=== PATIENT | male | born 1955 | race Caucasian/White ===

== ENCOUNTER → 2022-01-18 11:01 | Outpatient (CLI) | payer SELFPAY ==
[2022-01-18 12:31] LABS: Add Manual Diff / Slide Review NO; Basophils Absolute Auto 0 /uL (0-100); Basophils Percent Auto 1.2 % (0-2); Eosinophils Absolute Auto 100 /uL (0-450); Hematocrit 42.2 % (41-53); Hemoglobin 14.5 g/dL (13.5-17.5); Lymphocytes Absolute Auto 1500 /uL (1100-4500); Lymphocytes Percent Auto 36.9 % (25-40); Mean Corpuscular HGB Conc 34.4 % (30-36); Mean Corpuscular Hemoglobin 31.5 PG (26-34); Mean Corpuscular Volume 91.5 fL (80-100); Monocytes Absolute Auto 500 /uL (0-900); Monocytes Percent Auto 11.5 % (3-14); Neutrophils Absolute Auto 1900 /uL (1500-7000); Neutrophils Percent Auto 48.4 % (50-75); Platelet Count 143 X10^3/uL (150-400); Red Blood Cell Count 4.61 X10^6/uL (4.5-5.9); Red Cell Distribution Width 13.7 % (11.6-14.8)
[2022-01-18 12:44] LABS: Carbon Dioxide 26 mmol/L (22-32); Chloride 107 mmol/L (98-107); HEMOLYSIS < 15 (0-50); Potassium 4.2 mmol/L (3.4-5.1); Sodium 139 mmol/L (137-145)
== END ==
PROVIDERS: Referring Provider Orthopaedic Surgery; Visit Provider Orthopaedic Surgery
DX: Z01.812 Encounter for preprocedural laboratory examination (principal)
CPT/HCPCS: 36415; 80051; 85025; 93005

== ENCOUNTER → 2022-03-11 09:01 | Outpatient (CLI) | payer OTHER, SELFPAY ==
[2022-03-11 09:39] LABS: Add Manual Diff / Slide Review NO; Basophils Absolute Auto 100 /uL (0-100); Basophils Percent Auto 1.6 % (0-2); Eosinophils Absolute Auto 100 /uL (0-450); Eosinophils Percent Auto 3.4 % (2-4); Hematocrit 40.9 % (41-53); Hemoglobin 14.3 g/dL (13.5-17.5); Lymphocytes Absolute Auto 1500 /uL (1100-4500); Lymphocytes Percent Auto 40.4 % (25-40); Mean Corpuscular Hemoglobin 31.4 PG (26-34); Mean Corpuscular Volume 89.6 fL (80-100); Monocytes Absolute Auto 400 /uL (0-900); Monocytes Percent Auto 11.5 % (3-14); Neutrophils Absolute Auto 1600 /uL (1500-7000); Neutrophils Percent Auto 43.1 % (50-75); Platelet Count 138 X10^3/uL (150-400); Red Blood Cell Count 4.56 X10^6/uL (4.5-5.9); Red Cell Distribution Width 13.6 % (11.6-14.8); White Blood Cell Count 3.7 X10^3/uL (4.5-11.0)
[2022-03-11 09:48] LABS: Hemoglobin A1C% w Est Avg Glu 5.4 % (4.0-6.0)
[2022-03-11 11:23] LABS: BUN Creatinine Ratio 17.1 (6-22); Blood Urea Nitrogen 14 mg/dL (9-20); Calcium 8.4 mg/dL (8.4-10.2); Carbon Dioxide 24 mmol/L (22-32); Chloride 108 mmol/L (98-107); Cholesterol 236 mg/dL (140-199); Estimated Glomerular Filt Rate > 60 mL/min (>60); Glucose 91 mg/dL (80-110); HDL Cholesterol 39 mg/dL (40-60); HEMOLYSIS < 15 (0-50); LDL Cholesterol Calculated 179 mg/dL (<100); Potassium 3.8 mmol/L (3.4-5.1); Sodium 138 mmol/L (137-145); Triglycerides 90 mg/dL (35-150)
== END ==
PROVIDERS: Referring Provider Neuromusculoskeletal Medicine & OMM; Visit Provider Neuromusculoskeletal Medicine & OMM
DX: Z00.00 Encounter for general adult medical examination without abnormal findings (principal)
CPT/HCPCS: 36415; 80048; 80061; 83036; 85025

== ENCOUNTER → 2022-04-04 16:10 | Outpatient (CLI) | payer OTHER, SELFPAY ==
[2022-04-04 18:11] LABS: Add Manual Diff / Slide Review NO; Basophils Absolute Auto 100 /uL (0-100); Basophils Percent Auto 1.1 % (0-2); Eosinophils Absolute Auto 100 /uL (0-450); Hematocrit 41.8 % (41-53); Hemoglobin 14.4 g/dL (13.5-17.5); Lymphocytes Absolute Auto 1800 /uL (1100-4500); Lymphocytes Percent Auto 31.1 % (25-40); Mean Corpuscular HGB Conc 34.4 % (30-36); Mean Corpuscular Hemoglobin 31.3 PG (26-34); Monocytes Absolute Auto 600 /uL (0-900); Monocytes Percent Auto 11.1 % (3-14); Neutrophils Absolute Auto 3200 /uL (1500-7000); Neutrophils Percent Auto 54.7 % (50-75); Platelet Count 144 X10^3/uL (150-400); Red Cell Distribution Width 13.6 % (11.6-14.8); White Blood Cell Count 5.8 X10^3/uL (4.5-11.0)
[2022-04-04 18:44] LABS: Hemoglobin A1C% w Est Avg Glu 5.4 % (4.0-6.0)
[2022-04-04 19:03] LABS: Blood Urea Nitrogen 23 mg/dL (9-20); Calcium 8.8 mg/dL (8.4-10.2); Carbon Dioxide 24 mmol/L (22-32); Chloride 109 mmol/L (98-107); Estimated Glomerular Filt Rate > 60 mL/min (>60); Glucose 97 mg/dL (80-110); HEMOLYSIS 15 (0-50); Potassium 3.8 mmol/L (3.4-5.1); Sodium 141 mmol/L (137-145)
== END ==
PROVIDERS: Family Provider Family Medicine; PCP Family Medicine; Referring Provider Orthopaedic Surgery; Visit Provider Orthopaedic Surgery
DX: Z01.812 Encounter for preprocedural laboratory examination (principal); R73.9 Hyperglycemia, unspecified
CPT/HCPCS: 36415; 80048; 83036; 85025

== ENCOUNTER → 2022-04-08 12:49 | Outpatient (CLI) | payer OTHER, SELFPAY ==
[2022-04-08 13:27] LABS: COVID19 -Nasal RAPID Negative (Negative)
== END ==
PROVIDERS: Family Provider Family Medicine; PCP Family Medicine; Referring Provider Orthopaedic Surgery; Visit Provider Orthopaedic Surgery
DX: Z20.822 Contact with and (suspected) exposure to COVID-19 (principal)
CPT/HCPCS: 87635; C9803

== ENCOUNTER 2022-04-09 09:12 | Day surgery (SDC) | payer OTHER, SELFPAY ==
[2022-04-08 14:40] VITALS: BMI 32.5
[2022-04-09] VITALS (16 sets, daily range): BP systolic 110–149; BP diastolic 67–96; PULSE 69–93; RESP 16–28; TEMP 36.1–37; O2SAT 83–97; BMI 32.5
--- NOTE | 2022-04-09 08:28 | DI.RAD.S_ITS ---
PROCEDURE: XR KNEE LT 1TO2V INDICATIONS: post op total knee TECHNIQUE: 2 view(s) of the knee acquired. COMPARISON: [facility], XR KNEE 4+ VIEWS LEFT, 10/23/2021, 13:39. FINDINGS: Bones: Patient is status post knee joint arthroplasty. Hardware components are in expected positions. Visualized bony structures are intact. Soft tissues: Overlying postoperative changes are noted. IMPRESSION: Expected postoperative change. Dictated by: Kayla Schwab M.D. on 04/09/2022 at 13:29 Approved by: Kayla Schwab M.D. on 04/09/2022 at 13:29
[2022-04-09] MEDS: ACETAMINOPHEN 325 MG TABLET 975 MG PO (09:54)
[2022-04-09] MEDS: PREGABALIN 75 MG CAPSULE PO (09:54)
[2022-04-09] MEDS: CELECOXIB 200 MG CAPSULE PO (09:54)
[2022-04-09] MEDS: LACTATED RINGERS 1,000 ML 42 ML IV ×2 (09:56→11:50)
--- NOTE | 2022-04-09 10:24 | PM.PREOP ---
Pre-operative Note COVID-19 COVID-19 status: Negative Result date/Date tested (Pos, Neg/Pending): 04/08/22 Interval Note History & Physical reviewed/Exam performed by Physician: Yes Changes to H&P: No
--- NOTE | 2022-04-09 11:01 | SUR.PREOP ---
Block start time [1050] . Monitoring initiated and maintained throughout procedure. Oxygen at 2LNP anesthesiologist instructions; IV sedation given by anesthesia. Patient remained stable throughout procedure, no adverse reactions noted. Block end time [1059].
[2022-04-09] MEDS: CEFAZOLIN 2 GM/20 ML SYRINGE IV (11:20)
[2022-04-09] MEDS: TRANEXAMIC ACID 1,000 MG VIAL 1000 MG INJ ×2 (11:20→12:44)
--- NOTE | 2022-04-09 11:43 | SUR.OPER ---
Supine on padded OR bed. Pillow under head, arms secured on padded armboards <90 degree abduction. Safety belt across torso. Non-operative leg secured with tape over blanket over lower leg. Operative leg secured in [place]. Foam padded brace at thigh of operative leg.
[2022-04-09] MEDS: MORPHINE 4 MG/ML INJ INJ (12:03)
[2022-04-09] MEDS: BUPIVACAINE LIPOSOME 266 MG/20 ML VIAL INJ (12:20)
[2022-04-09] MEDS: BUPIVACAINE 0.25% (PF) 60 ML, EPINEPHrine 0.3 MG INJ (12:20)
--- NOTE | 2022-04-09 12:57 | PM.OP.1 ---
Operative Date/Time/Diagnoses Date of procedure: 04/09/22 Time of procedure: 12:58 Pre-op diagnosis: Left knee osteoarthritis Post-op diagnosis: same Procedure & Clinicians Procedure: Left total knee replacement Same procedure as scheduled: Yes Indications: The patient has had progressively worsening left knee pain with radiographic changes consistent with arthritis. Non-operative management has failed and the patient has requested total knee replacement. The risks, benefits and alternatives to surgery were discussed with the patient prior to proceeding. Risks discussed included, but were not limited to, failure to relieve pain, stiffness, infection, nerve damage, deep venous thrombosis, pulmonary embolism, stroke, coma, heart attack, permanent paralysis and , as well as the potential need for eventual revision of the prosthetic. Surgeon: Reinier Pearson Share[employer] Net Developer: Mathew Temple Click Yes if Unassisted: No Anesthesia Type: General, Peripheral nerve block and Local Operative Notes Findings: Severe patellofemoral and moderate medial and lateral osteoarthritis Closure Type: primary Specimen(s): none sent Prosthetic devices, grafts, tissues, transplants, or devices: Implants used in this procedure were manufactured by the [employer] and [employer] and included the BCS II Journey total knee replacement with a size 5 left Oxinium femoral component, a size 5 left non porous tibial base plate, a 9 mm cross-linked polyethylene tibial insert and a 35 mm oval Lori II patella. Applied: implant(s) Estimated Blood Loss (mL): 25 Blood products transfused: none Tourniquet time (min): 49 Procedure in detail: The patient was seen in the pre-operative area, where the left knee was identified as the operative site and this was marked with my initials. The patient received pre-operative antibiotics, and was taken to the operating room and placed on the operative table in the supine position. After satisfactory anesthesia, a aircraft time clerk out was performed. The left leg was encircled with a tourniquet about the proximal thigh, and the leg was prepared from the toes to the tourniquet with ChloroPrep in the usual fashion and draped through sterile drapes. The leg was elevated and exsanguinated with Eschmark bandage and the tourniquet inflated to 250 mmHg pressure. The knee was approached through an approximately 18 cm incision centered over the patella and carried into the knee through a medial parapatellar arthrotomy. The anterior osteophytes and soft tissues were removed. The rotational landmarks of Motley's line and the transepicondylar axis were marked on the femur with electrocautery, and intramedullary guide holes for the femur and tibia were created. The distal femoral cut was made in 6 degrees of valgus using the intramedullary guide at the +1 cut setting due to a mild flexion contracture. The proximal tibial cut was then made using the intramedullary guide, taking 9 mm of bone off the less involved side. The extension gap was checked and the rotation of the femoral component confirmed with the gap balancing blocks. The anterior, posterior and chamfer cuts were then made. The posterior osteophytes and soft tissues were then removed. The posterior capsule was injected with part of a mixture of 40 ml 0.25% Marcaine mixed with 20 ml Exparel and 4 mg of morphine for post-operative pain control. The remainder of this mixture was injected into the capsule and subcutaneous tissues during cement curing. The tibia was prepared with the rotation set by an extra medullary guide. Trial tibial and femoral components were then placed and the intercondylar notch cut through the femoral trial. Range of motion was 0-135 degrees, with good stability throughout the range. The patella was then cut to accommodate the patellar prosthetic. There was no need for a lateral release. The trials were then removed, and the femoral hole plugged with a bone plug. The bone was prepared with pulsatile lavage, and dried with a sponge. Cement was applied and the final prosthetics placed. Excess cement was removed during and after cement curing. After confirming there was no extruded cement posteriorly, the final tibial insert was placed. The knee was copiously irrigated and the tourniquet deflated. Hemostasis was obtained. The capsule was closed with interrupted # 2 polyester sutures. The subcutaneous layer was closed with 3-0 Vicryl, and the skin with a running 3-0 V-Lock suture and Dermabond. An Aquacel Ag dressing was applied and the patient was taken to recovery having tolerated the procedure well. Complications: none Post-operative Condition: stable Disposition: PACU Plan for aftercare: The patient will be maintained on a standard total knee replacement protocol with weight bearing as tolerated. The patient will receive aspirin and sequential compression devices for DVT prophylaxis. The patient will be discharged home when safe for the home environment.
[2022-04-09] MEDS: fentaNYL 100 MCG/2 ML INJ IV ×2 (13:17→13:23)
[2022-04-09] MEDS: ONDANSETRON 4 MG/2 ML INJ IV (13:43)
[2022-04-09] MEDS: OXYCODONE IR 5 MG TABLET 10 MG PO (13:45)
--- NOTE | 2022-04-09 14:17 | SUR.PHASEI ---
1400: Pt A&Ox4, VSS, reports pain as tolerated, denies nausea and ready to transfer to room. Report given to BRAYAN Garcia using SBAR with time allowed for questions. Dressing c/d/i. Transferred to room via bed with this RN assit with all personal belongings. Handoff to receiving RN.
[2022-04-09] MEDS: LACTATED RINGERS 1,000 ML 100 ML IV ×2 (14:35→23:56)
[2022-04-09] MEDS: HYDROMORPHONE 0.5 MG INJ 0.2 MG IV (15:01)
[2022-04-09] MEDS: HYDROMORPHONE 2 MG TABLET PO ×2 (16:06→20:15)
[2022-04-09] MEDS: ACETAMINOPHEN 325 MG TABLET 650 MG PO ×2 (17:56→23:54)
[2022-04-09] MEDS: hydrOXYzine pamoate 25 MG CAPSULE PO ×2 (18:04→23:54)
[2022-04-09] MEDS: OXYCODONE IR 10 MG TABLET PO (18:05)
[2022-04-09] MEDS: DOCUSATE 100 MG CAPSULE PO (20:16)
[2022-04-09] MEDS: ASPIRIN EC 81 MG TABLET PO (20:16)
[2022-04-09] MEDS: LOSARTAN 50 MG TABLET 100 MG PO (20:28)
[2022-04-09] MEDS: TAMSULOSIN 0.4 MG CAPSULE PO (20:29)
--- NOTE | 2022-04-09 22:03 | PC.NURSE ---
Patient is alert and oriented. Breath sounds CTA with RA sat of 94%. HRR. Denies nausea. BT present and is passing flatus. Denies dysuria, frequency or urgency; using urinal to void. Is able to turn himself in bed. Has not yet been out of bed post-op and declines offer to get up at this time. Aquacel dressing to left knee covered with lavern wrap is CDI. CMS is intact except unable to lift leg off bed. Does have some chronic burning numbness in left hand radiating up arm. Chronic bilateral LE edema. Wearing right calf SCD at shift change and now applied SCD to bilateral legs. Did complain of 7/10 pain earlier and was medicated with po Dilaudid and ice packs applied and pain has come down to 5/10 and states it is tolerable. Fall risk score is high and bed alarm is activated.
[2022-04-09] MEDS: OXYCODONE IR 5 MG TABLET PO (23:13)
[2022-04-10 00:15] VITALS: BP 130/73; PULSE 78; RESP 17; TEMP 37.1; O2SAT 96
[2022-04-10] MEDS: OXYCODONE IR 10 MG TABLET PO ×3 (04:06→13:41)
[2022-04-10 04:12] VITALS: BP 126/71; PULSE 79; RESP 18; TEMP 36.8; O2SAT 94
[2022-04-10] MEDS: ACETAMINOPHEN 325 MG TABLET 650 MG PO ×2 (05:49→10:55)
[2022-04-10 06:38] LABS: Hemoglobin 12.4 g/dL (13.5-17.5)
[2022-04-10 07:45] VITALS: BP 123/68; PULSE 70; RESP 16; TEMP 37.2; O2SAT 95
--- NOTE | 2022-04-10 08:00 | PM.DS.1 ---
History of Present Illness History of Present Illness Date Patient Seen: 04/10/22 Time Patient Seen: 08:01 Chief complaint: Left knee pain s/p left TKA Narrative: Patient is complaining of moderate to severe left knee pain. He is also having left lower extremity swelling, which was happening prior to surgery as well. He denies any new numbness or tingling. Overall he is feeling well like to be discharged home today. Discharge Providers Provider Discharge Date: 04/10/22 Primary care physician: Shannon Dupree MD Consults: 04/09/22 14:05 Consult to Discharge Planning Routine Comment: Consult to Physical Therapy Evaluate & Treat Comment: Physician Instructions: postop TKA protocol Discharge provider: Shilpi Ariza PA-C Summary Hospital Course Discharge Diagnosis: Left knee osteoarthritis Hospital Course: Operative Date/Time/Diagnoses Date of procedure: 04/09/22 Time of procedure: 12:58 Procedure & Clinicians Procedure: Left total knee replacement Same procedure as scheduled: Yes Indications: The patient has had progressively worsening left knee pain with radiographic changes consistent with arthritis. Non-operative management has failed and the patient has requested total knee replacement. The risks, benefits and alternatives to surgery were discussed with the patient prior to proceeding. Risks discussed included, but were not limited to, failure to relieve pain, stiffness, infection, nerve damage, deep venous thrombosis, pulmonary embolism, stroke, coma, heart attack, permanent paralysis and , as well as the potential need for eventual revision of the prosthetic. Surgeon: Reinier Pearson Engineer Station Mainline: Mathew Temple Click Yes if Unassisted: No Anesthesia Type: General, Peripheral nerve block and Local Operative Notes Findings: Severe patellofemoral and moderate medial and lateral osteoarthritis Closure Type: primary Specimen(s): none sent Status at Discharge Cognitive/behavioral status at discharge: at baseline, oriented Functional status at discharge: uses cane/walker Overall status at discharge: patient is progressing back to baseline Exam Vital Signs (past 8 hours): - 04/10/22 00:15 04/10/22 04:12 Temperature 98.8 F 98.3 F Pulse Rate 78 79 Respiratory Rate 17 18 Blood Pressure 130/73 126/71 Pulse Oximetry 96 94 Oxygen Flow Rate 0 0 Oxygen Delivery Method Room Air Oxygen Flow Rate 0 Narrative Exam Narrative: Pleasant 66-year-old male, resting comfortably in bed, no acute distress. Dressing is clean, dry, intact. Left lower extremity has 1 to 2+ distal pitting edema. Bilateral lower extremity: Motor functions are grossly intact, sensation is grossly intact to light touch, calves are soft and nontender to palpation. Objective Labs Result Diagrams: 04/10/22 06:12 Labs: Laboratory Results - last 24 hr 04/10/22 06:12 Hgb 12.4 L Hct 36.0 L PFSH Medical History Osteoarthritis Platelets decreased Surgical History Hx of hernia repair Hx of lumbosacral spine surgery Hx of plastic surgery Social History household members: spouse Smoking Status: Former smoker alcohol intake: current Discharge Assessment & Plan Assessment and Plan Assessment: Stable status post left total knee arthroplasty -left lower extremity edema, present at baseline Plan of Treatment: -mobilize with PT. Weightbearing as tolerated with front wheel walker -continue with multimodal pain management. He has been on IV Dilaudid, oral Dilaudid, oxy 5-10 mg in addition to Tylenol and diclofenac and Vistaril. I will send him with a prescription of Dilaudid and Vistaril and Tylenol -aspirin 81 mg b.i.d. x6 weeks for DVT prophylaxis -DC home today once cleared by PT -patient instructed to elevate toes above his nose for his baseline lower extremity edema Discharge Plan Discharge Plan Patient Disposition: Home Discharge orders & Medications Discharge Orders: Discharge (Order); Ordered 04/10/22 Ordered By: Shilpi Ariza Prescriptions: New acetaminophen 500 mg capsule 500 mg PO Q4H MDD Max 3000 mg per day PRN (Reason: fever or pain) Qty: 90 0RF aspirin 81 mg Tablet,Delayed Release (Dr/Ec) 81 mg PO BID 42 Days Qty: 84 0RF Rx Instructions: Prevent blood clots docusate sodium 100 mg Capsule 100 mg PO BID PRN (Reason: Constipation from narcotic pain meds) Qty: 20 0RF hydromorphone 2 mg Tablet 2 mg PO Q3H PRN (Reason: Pain, Severe (7-10)) Qty: 42 0RF hydroxyzine pamoate 25 mg Capsule 25 mg PO Q6H PRN (Reason: Muscle spasm/pain/nausea) Qty: 40 0RF Continued tamsulosin 0.4 mg capsule 0.8 mg PO DAILY amlodipine 10 mg tablet 10 mg PO QAM losartan 100 mg tablet 100 mg PO QPM diclofenac sodium [Voltaren] 75 mg Tablet,Delayed Release (Dr/Ec) 75 mg PO BID Follow up/Referrals: Shannon Dupree MD [Primary Care Provider] - Reinier Pearson MD [Physician] - (10-14 days for postoperative visit) Diet/Activity/Treatments Diet: Diet as Tolerated Other treatments: Medications: -Aspirin 81mg twice daily x6 weeks to prevent blood clots. -OTC Tylenol 500 mg 1 tablet every 4 hours as needed for pain/fever. Max 6 tablets per day. -Diclofenac as needed for pain/inflammation. -Dilaudid 2 mg take 1 tablets every 3-4 hours as needed for moderate-severe pain (narcotic pain medication). -Vistaril (hydroxyine) 25mg 1 tab every 4 hours as needed for spasms/pain/nausea. -As needed medications: -Ducolax and /or MiraLax as needed for constipation from narcotic pain medications. -Pepcid AC as needed for stomach upset (usually from aspirin or ibuprofen). Dressing/Wound care: -Remove the Manjit wrap 48 hours after surgery. -Keep Aquacell dressing in place until postoperative follow-up office visit. -Okay to shower. Keep wound out of direct water stream. No soaking or submerging until all the scabs fall off (approximately 4-6 weeks). -No lotions, ointments, or scar creams directly to the incision until the wound is healed (4-6 weeks), -Please call the office if dressing becomes wet, soiled, or saturated. Activities: -Weight-bearing as tolerated. Use front wheeled walker, and progress to cane when safe. -Continue with home exercises as directed by your physical therapist. -Elevate ?toes above the nose if you have significant swelling in your lower leg. (A wedge pillow is easiest.) -Ice your incision as needed for pain/inflammation/swelling. Protect your skin with a folded pillowcase. -Incentive Spirometer (breathing device from hospital): 5-10xs every hour while awake for the first 1-2 weeks. Follow-up: -Follow-up with your surgeon or PA in the office in 10-14 days after surgery. -Follow-up with your surgeon 6 weeks postoperatively. Call the office if you have chest pain, shortness of breath, significant swelling that will not resolve with elevating, fever over 101?, significantly worsening pain, or are concerned you might need to go to the Emergency Room. [facility]: [phone] Skin/Wound/Dressing Care Report to your healthcare provider any signs of infection, such as:: chills, fever, night sweats, unusual drainage and unusual redness Visit Report/Discharge Packet Instructions: DI for Knee Replacement Stand Alone Forms: Surgery Discharge Discharge Data Primary Care Provider: Shannon Dupree Attending Provider: Reinier Pearson
[2022-04-10] MEDS: DOCUSATE 100 MG CAPSULE PO (08:06)
[2022-04-10] MEDS: hydrOXYzine pamoate 25 MG CAPSULE PO (08:06)
[2022-04-10] MEDS: AMLODIPINE 5 MG TABLET 10 MG PO (08:06)
[2022-04-10] MEDS: ASPIRIN EC 81 MG TABLET PO (08:07)
[2022-04-10] MEDS: HYDROMORPHONE 2 MG TABLET PO ×2 (08:07→10:54)
[2022-04-10] MEDS: polyethylene glycoL 3350 17 GM POWD.PACK PO (08:07)
--- NOTE | 2022-04-10 10:21 | PT.IIE ---
Current Diagnoses Unilateral primary osteoarthritis, left knee (04/09/22) Surgery Performed Operation Date: 04/09/22 11:00 Actual Procedures p Total Knee Arthroplasty(Left) - Reinier Pearson MD Surgical History (Last Reviewed 04/10/22 @ 08:03 by Shilpi Ariza PA-C) Hx of hernia repair Hx of lumbosacral spine surgery Hx of plastic surgery Medical History (Last Reviewed 04/10/22 @ 08:03 by Shilpi Ariza PA-C) Osteoarthritis Platelets decreased Physical Therapy Inpatient Evaluation/Re-Eval M1 PT/OT-IP Prior Functional Status Start: 04/10/22 14:23 Freq: NEEDED Status: Active Protocol: Document 04/10/22 10:21 AB (Rec: 04/10/22 14:35 AB [email or web address]) Medical Review Prior Functional Status Medical History Reviewed Yes Communication able to make needs known Mobility and Gait pt stated that he is independent with all mobilities and ambulation without AD Social History Household Members spouse Living Arrangements House Number of Floors (Floors) One Floor Number of Stairs To Enter/Railing? 1 step to enter Home Environment Standard Height Toilet,Walk in Shower,Built-In Shower Seat Home Equipment Front Wheel Walker,Straight Cane,Manual Wheelchair,Hand Held Shower Additional Social History Comment pt has an adjustable bed M2 PT-IP Current Condition Start: 04/10/22 14:23 Freq: NEEDED Status: Active Protocol: Document 04/10/22 10:21 AB (Rec: 04/10/22 14:35 AB [email or web address]) Physical Therapy Current Condition Current Condition Evaluation Date 04/10/22 Treatment Diagnosis s/p L TKA; difficulty in walking Onset Date 04/09/22 M3 PT-IP Subjective Start: 04/10/22 14:23 Freq: NEEDED Status: Active Protocol: Document 04/10/22 10:21 AB (Rec: 04/10/22 14:35 AB [email or web address]) Subjective Physical Therapy Visit Type Type Initial Evaluation Visit Start Time 10:21 Visit Stop Time 11:20 Total Visit Minutes 59 Number of COMPUTER PROGRAMMER CHIEF Visits 0 Physical Therapy Visit Comments Patient Comments agreeable to do PT Therapy Pain Assessment Pain When Pain Assessed At Rest Pain Present Pain Present Pain Reported Location left knee Intensity 9 Scale Used Numeric (0 - 10) Pain Management Techniques Apply Cold,Distraction, Modification of Treatment,Re- positioning,Timing of Activity with Medications M4 PT-IP Mobility and Gait Start: 04/10/22 14:23 Freq: NEEDED Status: Active Protocol: Document 04/10/22 10:21 AB (Rec: 04/10/22 14:35 AB [email or web address]) PT-Bed Mobility Assessment Supine to Sit Supine to Sit Moderate Assistance Sit to Supine Sit to Supine Moderate Assistance PT-Transfer Assessment Sit to and From Stand Sit to and from Stand Moderate Assistance,1 Person Assistance,Use of Upper Extremities Equipment Transfer Assistive Device Gait Belt,Front Wheeled Walker Orthotic/Prosthetic Devices or Brace: No Transfers Transfer Destination Chair Transfer Technique ambulated Transfer Ability Level of Assist Moderate Assistance,1 Person Assistance,Use of Upper Extremities Comments Mobility Comments pt sitting on chair. c/o increase L knee pain. completed heel slides. spouse in room with pt. completed sit to stand mod A and cues and step transfer to bed using FWW mod A. (+) L knee buckling. completed sit to supine mod A and instructed spouse on how to assist pt and completed. pt able to sit on EOB SBA. requires increase rest breaks in between tasks due to c/o increase pain. caregiver training conducted. educated spouse on how to use safety belt and how to assist pt. spouse was able to put safety belt on and assisted pt with ambulation ini room using FWW ~ 12 ft mod A and cues for L knee stabilization. pt sat on EOB. completed single leg stance max A with heavy UE use on FWW for support. educated pt on stair climbing. opted to do stair climbing in the afternoon due to pt not appropriate doing stair climbing at this time and also has c/o increase pain. pt requested to go back to bed. completed sit to supine modA. positioned pt in bed. call light and table placed within reach. Gait Assessment Gait Gait Assistance Required: Moderate Assistance Distance (Feet) 12 Able to Maintain Weight Bearing Status Yes During Gait Assistive Devices Assistive Device Gait Belt,Front Wheeled Walker Orthotic/Prosthetic Devices or Brace: No Gait Deviations General Gait Pattern Antalgic,Decreased Stride Length,Decreased Feet Clearance,Step-to Gait Factors Limiting Gait Function Factors Limiting Gait Function Decreased Activity Tolerance, Decreased Strength,Limited Range of Motion,Pain,Poor Balance,Poor Safety Awareness PT-Balance Assessment Sitting Balance and Reactions Static Sitting Balance Ability Good Dynamic Sitting Balance Ability Good Standing Balance and Reactions Static Standing Balance Ability Fair Dynamic Standing Balance Ability Poor Device Used FWW M5 PT-IP Objective Assessments Start: 04/10/22 14:23 Freq: NEEDED Status: Active Protocol: Document 04/10/22 10:21 AB (Rec: 04/10/22 14:35 AB [email or web address]) Orientation Orientation/Cognition Level of Alertness Alert Orientation Name,Place,Situation Language Function Ability No Deficits Noted Safety Awareness Decreased Safety Awareness Memory Description No Deficits Noted Gross Range of Motion Lower Extremity ROM Assessment Left Impaired Impairments L knee flexion: ~ 30 deg Strength Lower Extremity Strength Assessment Left Impaired Hip 3-/5 Knee 3-/5 Coordination Assessment Gross Coordination Gross Coordination WNL Sensation Assessment Sensation Gross Sensation WNL Muscle Tone Muscle Tone WNL Yes M6 PT-IP Treatment Start: 04/10/22 14:23 Freq: NEEDED Status: Active Protocol: Document 04/10/22 10:21 AB (Rec: 04/10/22 14:35 AB [email or web address]) Physical Therapy Treatment Exercises Exercises Quad Sets,Heel Slides Education Education Provided Precautions,Weight Bearing Status,Post-Op Packet,Safety M7 PT-IP Assessment and Plan Start: 04/10/22 14:23 Freq: NEEDED Status: Active Protocol: Document 04/10/22 10:21 AB (Rec: 04/10/22 14:35 AB [email or web address]) PT Summary Assessment and Plan Potential Rehabilitation Potential Good Status of Condition at Evaluation Evolving Summary Impairments Pain,ROM,Strength,Balance, Coordination,Sensation,Tone, Cognition,Bed Mobility, Transfers,Gait,Activity Tolerance Assessment Summary pt requiring mod A with mobility and with decrease activity tolerance affecting mobility. conducted caregiver training but further training is needed. pt has a step to enter the house and at this time is not appropriate to safety do stairs. pt also has c/o increase knee pain. will continue to assess progress for safe d/c plan. Goals Bed Mobility Goal Standby Assistance Transfer Goal Standby Assistance,Front Wheeled Walker Gait Goal Standby Assistance,Front Wheel Walker Gait Distance 200 Other Goals up/down 1 step using FWW SBA Days to Meet Goals 10 Frequency of Treatment Frequency Of Treatment Twice a Day Treatment Plan Physical Therapy Treatment Plan Bed Mobility Training,Transfer Training,Gait Training, Therapeutic Exercise,Balance Retraining,Post Op Education, Discharge Planning,Hot or Cold Pack,Neuromuscular Re-ed, Coordination Retraining,Manual Therapy Weight Bearing Status Weight Bearing Status Weight Bear as Tolerated Allowed Weight Bearing Amount (enter % LLE WBAT or #) (%) Recommendations To Nursing Amount of Assist Needed 1 Person Assist Discharge Recommendations PT Discharge Recommendations Home with 18/05 Assist Available,Home Health,SNF Rehab,Home vs SNF Transportation Needs at Discharge Private Vehicle
[2022-04-10 13:00] VITALS: BP 137/70; PULSE 72; RESP 16; TEMP 37.3; O2SAT 96
--- NOTE | 2022-04-10 13:30 | PT.IPTN ---
Current Diagnoses Unilateral primary osteoarthritis, left knee (04/09/22) Surgery Performed Operation Date: 04/09/22 11:00 Actual Procedures p Total Knee Arthroplasty(Left) - Reinier Pearson MD Physical Therapy Treatment Note M2 PT-IP Current Condition Start: 04/10/22 14:23 Freq: NEEDED Status: Active Protocol: Document 04/10/22 10:21 AB (Rec: 04/10/22 14:35 AB [email or web address]) Physical Therapy Current Condition Current Condition Evaluation Date 04/10/22 Treatment Diagnosis s/p L TKA; difficulty in walking Onset Date 04/09/22 M3 PT-IP Subjective Start: 04/10/22 14:23 Freq: NEEDED Status: Active Protocol: Document 04/10/22 13:30 AB (Rec: 04/10/22 14:42 AB [email or web address]) Subjective Physical Therapy Visit Type Type Treatment Note Visit Start Time 13:30 Visit Stop Time 14:07 Total Visit Minutes 37 Number of READING COACH Visits 0 Physical Therapy Visit Comments Patient Comments stated that pain is better Therapy Pain Assessment Pain When Pain Assessed At Rest Pain Present Pain Present Pain Reported Location left knee Intensity 4 Scale Used Numeric (0 - 10) Pain Management Techniques Apply Cold,Distraction, Modification of Treatment,Re- positioning,Timing of Activity with Medications M4 PT-IP Mobility and Gait Start: 04/10/22 14:23 Freq: NEEDED Status: Active Protocol: Document 04/10/22 13:30 AB (Rec: 04/10/22 14:42 AB [email or web address]) PT-Bed Mobility Assessment Supine to Sit Supine to Sit Minimal Assistance,1 Person Assistance Sit to Supine Sit to Supine Minimal Assistance PT-Transfer Assessment Sit to and From Stand Sit to and from Stand Contact Guard Assistance,1 Person Assistance,Use of Upper Extremities Equipment Transfer Assistive Device Gait Belt,Front Wheeled Walker Orthotic/Prosthetic Devices or Brace: No Transfers Transfer Destination Chair Transfer Technique ambulated Transfer Ability Level of Assist Contact Guard Assistance,1 Person Assistance,Use of Upper Extremities Comments Mobility Comments caregiver training conducted. pt completed supine to sit with spouse assisting. spouse was able to put safety belt on pt. pt ambulated using FWW to the chair CGA. completed single leg stance on LLE and able to maintain stability. educated pt and spouse on how to do stair climbing. spouse assisted pt with ambulation towards platform step using FWW CGA. completed up/down platform step with first attempt with PT assisting and cueinig. performed again with spouse assisting and completed CGA safely. pt ambulated more in the hallway ~ 50 ft using FWW CGA. ambulated back to the room. pt requested to go back to bed. completed sit to supine with spouse assisting mod A for LE elevation. positioned pt in bed. call light and table placed within reach. informed nurse regarding pt d/ c plan. Gait Assessment Gait Gait Assistance Required: Contact Guard Assist Distance (Feet) 50 Able to Maintain Weight Bearing Status Yes During Gait Assistive Devices Assistive Device Gait Belt,Front Wheeled Walker Orthotic/Prosthetic Devices or Brace: No Gait Deviations General Gait Pattern Antalgic,Decreased Stride Length,Decreased Feet Clearance,Step-to Gait Factors Limiting Gait Function Factors Limiting Gait Function Decreased Activity Tolerance, Decreased Strength,Limited Range of Motion,Pain,Poor Balance,Poor Safety Awareness Stair Climbing Assessment Evaluation Level of Assist On Stairs Contact Guard Assistance Devices Stair Climbing Assistive Devices Front Wheel Walker Technique/Endurance Stair Climbing Direction Ascend and Descend Stair Climbing Technique Step to Step Number of Steps Climbed 1 Stair Climbing Set # Repetitions (reps) 2 M5 PT-IP Objective Assessments Start: 04/10/22 14:23 Freq: NEEDED Status: Active Protocol: Document 04/10/22 10:21 AB (Rec: 04/10/22 14:35 [email or web address] Orientation Orientation/Cognition Level of Alertness Alert Orientation Name,Place,Situation Language Function Ability No Deficits Noted Safety Awareness Decreased Safety Awareness Memory Description No Deficits Noted Gross Range of Motion Lower Extremity ROM Assessment Left Impaired Impairments L knee flexion: ~ 30 deg Strength Lower Extremity Strength Assessment Left Impaired Hip 3-/5 Knee 3-/5 Coordination Assessment Gross Coordination Gross Coordination WNL Sensation Assessment Sensation Gross Sensation WNL Muscle Tone Muscle Tone WNL Yes M6 PT-IP Treatment Start: 04/10/22 14:23 Freq: NEEDED Status: Active Protocol: Document 04/10/22 13:30 AB (Rec: 04/10/22 14:42 AB [email or web address]) Physical Therapy Treatment Education Education Provided Safety M7 PT-IP Assessment and Plan Start: 04/10/22 14:23 Freq: NEEDED Status: Active Protocol: Document 04/10/22 13:30 AB (Rec: 04/10/22 14:42 AB [email or web address]) PT Summary Assessment and Plan Potential Rehabilitation Potential Good Summary Impairments Pain,ROM,Strength,Balance, Coordination,Sensation,Tone, Cognition,Bed Mobility, Transfers,Gait,Activity Tolerance Progress Towards Goals Slow Progress due to Pain Assessment Summary caregiver training conducted and spouse was able to assist pt safely. pt also has less pain this afternoon and was able to ambulate and transfer needing on CGA using FWW. pt may go home when medically stable. Goals Bed Mobility Goal Standby Assistance Transfer Goal Standby Assistance,Front Wheeled Walker Gait Goal Standby Assistance,Front Wheel Walker Gait Distance 200 Other Goals up/down 1 step using FWW SBA Days to Meet Goals 10 Frequency of Treatment Frequency Of Treatment Twice a Day Treatment Plan Physical Therapy Treatment Plan Bed Mobility Training,Transfer Training,Gait Training, Therapeutic Exercise,Balance Retraining,Post Op Education, Discharge Planning,Hot or Cold Pack,Neuromuscular Re-ed, Coordination Retraining,Manual Therapy Weight Bearing Status Weight Bearing Status Weight Bear as Tolerated Allowed Weight Bearing Amount (enter % LLE WBAT or #) (%) Recommendations To Nursing Amount of Assist Needed 1 Person Assist Discharge Recommendations PT Discharge Recommendations Home with Assistance, Outpatient PT Transportation Needs at Discharge Private Vehicle
--- NOTE | 2022-04-10 14:17 | CM.IDA ---
Initial DCP Assessment Note Pt is a 66 yo male, resident of [place], now POD#1 from left knee surgery by Dr Pearson PCP: Shannon Dupree Payer: [place] [employer] Reviewed chart, pt discussed in multidisciplinary rounds this morning. Therapy has cleared pt for return home w/family to assist and pt has planned for home, DC order from Ortho has already been initiated this morning. No needs expected from DC planning team although will remain available in case this changes today. MEAGAN Olivas
== END 2022-04-10 15:00 | disposition home or self-care (01) ==
LOC: OR 09:14 → AC 09:14
PROVIDERS: Family Provider Family Medicine; PCP Family Medicine; Referring Provider Orthopaedic Surgery; Visit Provider Orthopaedic Surgery
PROC: 0SRD0JZ Replacement of Left Knee Joint with Synthetic Substitute, Open Approach (ICD-10-PCS; CPT 27447; principal; 2022-04-09 11:00)
DX: M17.12 Unilateral primary osteoarthritis, left knee (principal); I10 Essential (primary) hypertension
CPT/HCPCS: 27447; 36415; 64450; 73560; 85014; 85018; 97162; 97530; C1776; C1713; C9290; J0171; J0690; J1100; J1170; J2250; J2270; J2405; J2704; J3010

== ENCOUNTER → 2022-04-24 14:11 | Outpatient (CLI) | payer OTHER, SELFPAY ==
[2022-04-09 15:01] VITALS: BMI 32.5
--- NOTE | 2022-04-24 | DI.US.S_ITS ---
PROCEDURE: US PERIPH VENOUS LOW EXTREM LT INDICATIONS: LEFT LEG PAIN TECHNIQUE: Real-time imaging, as well as color and pulse Doppler interrogation, were performed of the lower extremity deep veins from the inguinal ligament to the popliteal fossa. COMPARISON: None. FINDINGS: The common femoral, femoral and popliteal veins are normally compressible, and free of intraluminal thrombus. Color and pulse Doppler demonstrate normal phasic intraluminal flow. There is normal augmentation response to distal compression maneuver. IMPRESSION: No sonographic evidence of DVT. Dictated by: Yohan Garcia M.D. on 04/24/2022 at 14:38 Approved by: Yohan Garcia M.D. on 04/24/2022 at 14:39
== END ==
PROVIDERS: Family Provider Family Medicine; PCP Family Medicine; Referring Provider Physician Assistant Medical; Visit Provider Physician Assistant Medical
DX: M17.0 Bilateral primary osteoarthritis of knee (principal); M79.605 Pain in left leg
CPT/HCPCS: 93971

== ENCOUNTER 2022-05-29 09:45 | Outpatient (RCR) | payer OTHER, SELFPAY ==
--- NOTE | 2022-04-08 13:38 | PT.OIE ---
Current Diagnoses Unilateral primary osteoarthritis, left knee (04/08/22) Past Medical History (Last Reviewed 04/09/22 @ 09:33 by Althea Domínguez, RN) Osteoarthritis Platelets decreased Past Surgical History (Last Reviewed 04/09/22 @ 09:33 by Althea Domínguez, RN) Hx of hernia repair Hx of lumbosacral spine surgery Hx of plastic surgery Visit Care Team Role Provider Type Shannon Dupree MD Family Provider Non-Staff Primary Care Provider Specialty: Family Practice Address: [address] [place] [address], [id number] Email: Reinier Pearson MD Attending Provider Physician Referring Provider Specialty: Orthopedics Orthopedic Surgery Address: [address] [place] [address], [place], [address] Email: [email or web address] Physical Therapy Initial Evaluation PT-OP-A Visit Information Start: 04/07/22 09:54 Freq: Status: Active Protocol: Document 04/08/22 10:30 AMB (Rec: 04/09/22 12:46 AMB [id number]) Out-Patient Physical Therapy Visit Information Visit Information Visit Type Initial Evaluation Visit Start Time 10:30 Visit Stop Time 11:15 Total Visit Minutes 45 Visit Number 1 PT-OP-B Current Condition Start: 04/07/22 09:54 Freq: Status: Active Protocol: Document 04/08/22 10:30 AMB (Rec: 04/09/22 12:46 AMB [id number]) Current Condition History of Current Condition Onset Date 2013 Current Complaints L TKA 04/09/22 History of Current Condition Meet has had knee pain for a long time, started getting steroid injections 8 years ago . Got the to point where he really couldn't take it and is having surgery tomorrow. Plans to do a day surgery. Attends PT with his who is a retired RN. Reports he has a walker in the attic that was his MIL, not sure if it will be tall enough for him. Has 2 JEANCARLOS without rail (can sort of lean against the wall) . Planning to sleep on sofa/ recliner, tub shower. 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 Prior Functional Status Baseline Function- ADL's Modified Independent Baseline Function- Mobility Modified Independent Personal Factors Other Personal Factors That May Effect hypertension, R knee pain Therapy/Recovery PT-OP-C Subjective Start: 04/07/22 09:54 Freq: Status: Active Protocol: Document 04/08/22 10:30 AMB (Rec: 04/09/22 13:02 AMB [id number]) Patient Questionnaires Lower Extremity Functional Scale LEFS Score 24 LEFS Impairment 60 to 79% Impaired (Score 17- 31) OP-PT Pain Assessment Comments Pain Comments L knee and lower leg 06/04; R knee and lower leg 03/04 PT-OP-G Mobility & Gait Start: 04/07/22 09:54 Freq: Status: Active Protocol: Document 04/08/22 10:30 AMB (Rec: 04/09/22 13:02 AMB [id number]) OP Gait Assessment Comments Gait Comments Antalgic gait without full knee extension or flexion, no AD Stair Climbing Evaluation Comments Stair Climbing Comments Educated in step to gait patterning which pt was able to perform appropriately PT-OP-J Posture/Palpation/Skin Start: 04/07/22 09:54 Freq: Status: Active Protocol: Document 04/08/22 10:30 AMB (Rec: 04/09/22 13:02 AMB [id number]) Skin Assessment Edema Assessment Left Leg Edema Type Pitting Edema Degree 2+ Subjective Edema Description Tightness Comments throughout knee, lower leg, ankle PT-OP-K Range of Motion Start: 04/07/22 09:54 Freq: Status: Active Protocol: Document 04/08/22 10:30 AMB (Rec: 04/09/22 13:02 AMB [id number]) Knee Goniometric Range of Motion Knee Left Patient Position Supine Flexion Passive (degrees) 94 Comments missing 10 degrees of extension PT-OP-M Strength Start: 04/07/22 09:54 Freq: Status: Active Protocol: Document 04/08/22 10:30 AMB (Rec: 04/09/22 13:02 AMB [id number]) Knee Strength Knee Manual Muscle Testing Left Flexion (S2) 4+ Good+ Extension (L3) 5 Normal PT-OP-Q Treatments Start: 04/07/22 09:54 Freq: Status: Active Protocol: Document 04/08/22 10:30 AMB (Rec: 04/09/22 13:38 AMB [id number]) Therapeutic Exercises Supine Exercises heel slide Side left Reps/Minutes 10 passive knee ext Side left Reps/Minutes 30 SLR Side left Reps/Minutes 5 quad sets Side left Reps/Minutes 5 ankle pumps Side left Reps/Minutes 10 PT-OP-T Assessment and Plan Start: 04/07/22 09:54 Freq: Status: Active Protocol: Document 04/08/22 10:30 AMB (Rec: 04/09/22 13:38 AMB [id number]) Physical Therapy Assessment Rehab Potential Rehabilitation Potential Good Evaluation Complexity Number of Personal Factors/Comorbidities 1-2 Number of Body Systems Impaired 3 Clinical Presentation at Evaluation Stable Impairments Impairments Activity Tolerance,Edema, Functional Activities,Gait, Pain,ROM,Strength Goals Three Impairment Strength Short Term Goal (STG) Meet will be independent and consistent with a HEP for his knee. STG Duration 5 weeks Jail Goal (LTG) Meet will show improved knee strength by moving from sit to stand without UE support. LTG Duration 10 weeks Two Impairment Gait Short Term Goal (STG) Meet will ambulate for 6 minutes over smooth surface without assistive device. STG Duration 5 weeks Loan Servicing Officer Goal (LTG) Meet will ascend and descend a flight of stairs with an alternating gait pattern. LTG Duration 10 weeks One Impairment Range Short Term Goal (STG) Meet will improve his PROM to 5-100. STG Duration 5 weeks Jail Goal (LTG) Meet will improve his AROM to 0-120. LTG Duration 10 weeks Assessment Summary Assessment Meet attends physical therapy 1 day prior to L TKA surgery. He has significantly reduced ROM in his left knee into both extension and flexion. He has pitting edema in his lower legs bilaterally, worse on the left. Extensive education on FWW usage, stairs , and appropriate HEP, importance of movement, ice, elevation early on. He was able to appropriately ambulate with the FWW, ascend and descend stairs with a step to gait, and educated in sit to stand and bed mobility with using the right leg predominantly for the first few days after surgery. He is planning to go home the same day with his , and will return to this clinic in a week for a re-evaluation post surgery. Physical Therapy Plan Frequency and Duration Frequency of Treatment 2x/Week Duration of Treatment 10 weeks Plan of Care Start Date 04/08/22 Plan of Care End Date 06/17/22 Therapeutic Interventions Therapeutic Interventions Aquatic Therapy,Gait Training, Home Exercise Program,Joint Mobilizations,Manual Therapy, Neuromuscular Re-education, Patient/Caregiver Education, Self-Care/Home Management, Therapeutic Activities, Therapeutic Exercises Modalities Cold Pack/Ice Massage,Electric Stimulation,Hot Packs Next Visit Focus/Plan Next Note Type Re-Evaluation Next Visit Plan Re-evaluate post TKA surgery
--- NOTE | 2022-04-08 13:39 | PT.OPPOC ---
Physical, Occupational & Speech Therapy At [facility] Current Diagnoses Unilateral primary osteoarthritis, left knee (04/08/22) Visit Care Team Role Provider Type Shannon Dupree MD Family Provider Non-Staff Primary Care Provider Specialty: Family Practice Address: [address] [place], [address] Email: Reinier Pearson MD Attending Provider Physician Referring Provider Specialty: Orthopedics Orthopedic Surgery Address: [address] [place] [address], [id number] Email: [email or web address] Plan Of Care PT-OP-T Assessment and Plan Start: 04/07/22 09:54 Freq: Status: Active Protocol: Document 04/08/22 10:30 AMB (Rec: 04/09/22 13:38 AMB [id number]) Physical Therapy Assessment Rehab Potential Rehabilitation Potential Good Evaluation Complexity Number of Personal Factors/Comorbidities 1-2 Number of Body Systems Impaired 3 Clinical Presentation at Evaluation Stable Impairments Impairments Activity Tolerance,Edema, Functional Activities,Gait, Pain,ROM,Strength Goals Three Impairment Strength Short Term Goal (STG) Meet will be independent and consistent with a HEP for his knee. STG Duration 5 weeks Debt Management Counselor Goal (LTG) Meet will show improved knee strength by moving from sit to stand without UE support. LTG Duration 10 weeks Two Impairment Gait Short Term Goal (STG) Meet will ambulate for 6 minutes over smooth surface without assistive device. STG Duration 5 weeks Snf Goal (LTG) Meet will ascend and descend a flight of stairs with an alternating gait pattern. LTG Duration 10 weeks One Impairment Range Short Term Goal (STG) Meet will improve his PROM to 5-100. STG Duration 5 weeks Debt Management Counselor Goal (LTG) Meet will improve his AROM to 0-120. LTG Duration 10 weeks Assessment Summary Assessment Meet attends physical therapy 1 day prior to L TKA surgery. He has significantly reduced ROM in his left knee into both extension and flexion. He has pitting edema in his lower legs bilaterally, worse on the left. Extensive education on FWW usage, stairs , and appropriate HEP, importance of movement, ice, elevation early on. He was able to appropriately ambulate with the FWW, ascend and descend stairs with a step to gait, and educated in sit to stand and bed mobility with using the right leg predominantly for the first few days after surgery. He is planning to go home the same day with his , and will return to this clinic in a week for a re-evaluation post surgery. Physical Therapy Plan Frequency and Duration Frequency of Treatment 2x/Week Duration of Treatment 10 weeks Plan of Care Start Date 04/08/22 Plan of Care End Date 06/17/22 Therapeutic Interventions Therapeutic Interventions Aquatic Therapy,Gait Training, Home Exercise Program,Joint Mobilizations,Manual Therapy, Neuromuscular Re-education, Patient/Caregiver Education, Self-Care/Home Management, Therapeutic Activities, Therapeutic Exercises Modalities Cold Pack/Ice Massage,Electric Stimulation,Hot Packs Next Visit Focus/Plan Next Note Type Re-Evaluation Next Visit Plan Re-evaluate post TKA surgery Plan of Care Dates Plan of Care Start Date 04/08/22 Plan of Care End Date 06/17/22 Electronically Signed by: Shweta Alexander, PT 04/09/22 1635 If you are in agreement with this Plan of Care, please return a signed and dated copy. I have reviewed this Plan of Care and certify that the skilled therapy services above are required to meet the patient?s needs. Physician Signature Date Printed Name and Credentials Clinical Instructor Signature Printed Name and Credentials
[2022-04-09 15:01] VITALS: BMI 32.5
--- NOTE | 2022-04-14 16:46 | PT.OTRE ---
Current Diagnoses Unilateral primary osteoarthritis, left knee (04/14/22) Past Medical History (Last Reviewed 04/10/22 @ 08:03 by Shilpi Ariza PA-C) Osteoarthritis Platelets decreased Surgical History (Last Reviewed 04/10/22 @ 08:03 by Shilpi Ariza PA-C) Hx of hernia repair Hx of lumbosacral spine surgery Hx of plastic surgery Visit Care Team Role Provider Type Shannon Dupree MD Family Provider Non-Staff Primary Care Provider Specialty: Family Practice Address: [address] [place] [address], [id number] Email: Reinier Pearson MD Attending Provider Physician Referring Provider Specialty: Orthopedics Orthopedic Surgery Address: [address] [place] [address], [id number] Email: [email or web address] Physical Therapy Re-Evaluation PT-OP-A Visit Information Start: 04/07/22 09:54 Freq: Status: Active Protocol: Document 04/14/22 14:31 SAK (Rec: 04/14/22 15:15 [facility] [id number]) Out-Patient Physical Therapy Visit Information Visit Information Visit Type Re-Evaluation Visit Start Time 14:30 Visit Stop Time 15:25 Total Visit Minutes 55 Visit Number 2 PT-OP-B Current Condition Start: 04/07/22 09:54 Freq: Status: Active Protocol: Document 04/14/22 14:31 SAK (Rec: 04/14/22 15:15 [facility] [id number]) Current Condition History of Current Condition Onset Date 04/09/22 Current Complaints L TKA 04/09/22 History of Current Condition s/p left TKA 04/09/22, discharged home. Reports has been doing exercises a couple times per day, though painful and has a difficult time lifting his leg. Has history of bilateral LE swelling and left LE is swollen worse after surgery. States he has been icing. Using SPC to PT today, states I'm not a walker melony. Personal Factors Other Personal Factors That May Effect hypertension, R knee pain, Therapy/Recovery swelling PT-OP-C Subjective Start: 04/07/22 09:54 Freq: Status: Active Protocol: Document 04/14/22 14:31 SAK (Rec: 04/14/22 15:15 [facility] [id number]) OP-PT Pain Assessment Comments Pain Comments Feels better than before surgery. Elevating and icing his knee, doing HEP. PT-OP-G Mobility & Gait Start: 04/07/22 09:54 Freq: Status: Active Protocol: Document 04/14/22 14:31 [facility] (Rec: 04/14/22 16:45 [facility] [id number]) OP Mobility Evaluation Transfers Sit to Stand minimal use of left LE Stair Climbing Evaluation Comments Stair Climbing Comments deferred today. ASsess next session PT-OP-J Posture/Palpation/Skin Start: 04/07/22 09:54 Freq: Status: Active Protocol: Document 04/14/22 14:31 [facility] (Rec: 04/14/22 16:45 [facility] [id number]) Skin Assessment Edema Assessment Left Leg Edema Type Pitting Edema Degree 3+ Subjective Edema Description Tightness Comments throughout left knee, lower leg, ankle PT-OP-K Range of Motion Start: 04/07/22 09:54 Freq: Status: Active Protocol: Document 04/14/22 14:31 [facility] (Rec: 04/14/22 16:45 [facility] [id number]) Knee Goniometric Range of Motion Knee Measured in Degrees Left Patient Position Sitting Flexion Active (degrees) 80 Flexion Passive (degrees) 84 Comments extensor lag 26 deg active, 8 degrees passive Knee ROM Limitations Knee ROM Limitations Soft Tissue Tightness,Muscle Weakness,Pain,Swelling PT-OP-M Strength Start: 04/07/22 09:54 Freq: Status: Active Protocol: Document 04/14/22 14:31 [facility] (Rec: 04/14/22 16:45 [facility] [id number]) Knee Strength Knee Manual Muscle Testing Left Flexion (S2) 3- Fair- Extension (L3) 3- Fair- PT-OP-Q Treatments Start: 04/07/22 09:54 Freq: Status: Active Protocol: Document 04/14/22 14:31 [facility] (Rec: 04/14/22 16:45 [facility] [id number]) Therapeutic Exercises Supine Exercises SAQ Side bilateral Reps/Minutes 10x Comments mod physical assist left LE heel slide Side left Equipment Used pillowcase on left LE Reps/Minutes 10 Comments cues for right knee bent passive knee ext Side left Reps/Minutes 30 SLR Side left Equipment Used mod to min PT assist Reps/Minutes 10x Comments cues for core activation, quad set, and ankle df prior to lift. quad sets Side left Reps/Minutes 10x ankle pumps Side left Reps/Minutes 10 Gait Training Gait Activity 1 Device Used SPC Level of Assistance SBA, cues Surface firm Distance/Duration 30' Treatment Focus gait with dec limp, correct sequencing, correct use of cane Comments Patient cane lowered one notch for improved fit. Patient advised to use walker if limping with use of cane. Self-Care/Home Management Treatment Education Patient Education Home Exercise Program,Pain Management Other Education gradually increase use of left LE with sit to stand PT-OP-T Assessment and Plan Start: 04/07/22 09:54 Freq: Status: Active Protocol: Document 04/14/22 14:31 [facility] (Rec: 04/14/22 16:45 [facility] [id number]) Physical Therapy Assessment Goals Three Impairment Strength Short Term Goal (STG) Meet will be independent and consistent with a HEP for his knee. STG Duration 04/29/22 Group Home Goal (LTG) Meet will show improved knee strength by moving from sit to stand without UE support. LTG Duration 06/17/22 Two Impairment Gait Short Term Goal (STG) Meet will ambulate for 6 minutes over smooth surface without assistive device. STG Duration 04/29/22 Separator Operator [employer] Goal (LTG) Meet will ascend and descend a flight of stairs with an alternating gait pattern. LTG Duration 06/17/22 One Impairment Range Short Term Goal (STG) Meet will improve his PROM left kneeto 5-100. STG Duration 04/29/22 Separator Operator [employer] Goal (LTG) Meet will improve his AROM left knee to 0-120. LTG Duration 06/17/22 Assessment Summary Assessment Patient is 6 days s/p left TKA presenting with deficits in knee ROM and strength and significant edema left LE; advised patient and to obtain thigh-high compression stocking. Instructed in importance and benefits of exercise and elevation with ice i for edema reduction and improved ROM and strength. Due to restrictions in ROM as well as severity of swelling recommended PT 3x/wk this first week post-op and patient agreed, then anticipate continued PT at 2x/wk as originally planned. He was ambulating with a single point cane but using on incorrect side and limping. Cane was lowered for correct fit and he was instructed in correct use , as well as need to use walker if limping using cane. Also instructed in importance of normalizing use of left LE including with sit to stand vs excessive favoring. Patient demonstrated good understanding of the above and agreed with POC. 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 Physical Therapy Plan Frequency and Duration Frequency of Treatment 21 visits Duration of Treatment 10 weeks Plan of Care Start Date 04/08/22 Plan of Care End Date 06/17/22 Therapeutic Interventions Therapeutic Interventions Aquatic Therapy,Gait Training, Home Exercise Program,Joint Mobilizations,Manual Therapy, Neuromuscular Re-education, Patient/Caregiver Education, Self-Care/Home Management, Therapeutic Activities, Therapeutic Exercises Modalities Cold Pack/Ice Massage,Electric Stimulation,Hot Packs Next Visit Focus/Plan Next Note Type Treatment Note Next Visit Plan Continue TKA rehab, assess fit of compression stocking if obtained. Start with gentle Biodex or recumbant ex bike if tolerated, progress TKA ex program including gravity assisted knee flex ROM, standing extension. Work on sit to stand from elevated surface. Ice and elevation with IFES to finish.
--- NOTE | 2022-04-14 16:46 | PT.OPPOC ---
Physical, Occupational & Speech Therapy At [facility] Current Diagnoses Unilateral primary osteoarthritis, left knee (04/14/22) Visit Care Team Role Provider Type Shannon Dupree MD Family Provider Non-Staff Primary Care Provider Specialty: Family Practice Address: [address] [facility], [place], [address] Email: Reinier Pearson MD Attending Provider Physician Referring Provider Specialty: Orthopedics Orthopedic Surgery Address: [address] [place] [address], [address] Email: [email or web address] Plan Of Care PT-OP-T Assessment and Plan Start: 04/07/22 09:54 Freq: Status: Active Protocol: Document 04/14/22 14:31 [facility]AK (Rec: 04/14/22 16:45 [facility] [id number]) Physical Therapy Assessment Goals Three Impairment Strength Short Term Goal (STG) Meet will be independent and consistent with a HEP for his knee. STG Duration 04/29/22 Halfway Goal (LTG) Meet will show improved knee strength by moving from sit to stand without UE support. LTG Duration 06/17/22 Two Impairment Gait Short Term Goal (STG) Meet will ambulate for 6 minutes over smooth surface without assistive device. STG Duration 04/29/22 Cottrell Blower Goal (LTG) Meet will ascend and descend a flight of stairs with an alternating gait pattern. LTG Duration 06/17/22 One Impairment Range Short Term Goal (STG) Meet will improve his PROM left kneeto 5-100. STG Duration 04/29/22 Cottrell Blower Goal (LTG) Meet will improve his AROM left knee to 0-120. LTG Duration 06/17/22 Assessment Summary Assessment Patient is 6 days s/p left TKA presenting with deficits in knee ROM and strength and significant edema left LE; advised patient and to obtain thigh-high compression stocking. Instructed in importance and benefits of exercise and elevation with ice i for edema reduction and improved ROM and strength. Due to restrictions in ROM as well as severity of swelling recommended PT 3x/wk this first week post-op and patient agreed, then anticipate continued PT at 2x/wk as originally planned. He was ambulating with a single point cane but using on incorrect side and limping. Cane was lowered for correct fit and he was instructed in correct use , as well as need to use walker if limping using cane. Also instructed in importance of normalizing use of left LE including with sit to stand vs excessive favoring. Patient demonstrated good understanding of the above and agreed with POC. 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 Physical Therapy Plan Frequency and Duration Frequency of Treatment 21 visits Duration of Treatment 10 weeks Plan of Care Start Date 04/08/22 Plan of Care End Date 06/17/22 Therapeutic Interventions Therapeutic Interventions Aquatic Therapy,Gait Training, Home Exercise Program,Joint Mobilizations,Manual Therapy, Neuromuscular Re-education, Patient/Caregiver Education, Self-Care/Home Management, Therapeutic Activities, Therapeutic Exercises Modalities Cold Pack/Ice Massage,Electric Stimulation,Hot Packs Next Visit Focus/Plan Next Note Type Treatment Note Next Visit Plan Continue TKA rehab, assess fit of compression stocking if obtained. Start with gentle Biodex or recumbant ex bike if tolerated, progress TKA ex program including gravity assisted knee flex ROM, standing extension. Work on sit to stand from elevated surface. Ice and elevation with IFES to finish. Plan of Care Dates Plan of Care Start Date 04/08/22 Plan of Care End Date 06/17/22 Electronically Signed by: aLry Morales, PT 04/14/22 5997 If you are in agreement with this Plan of Care, please return a signed and dated copy. I have reviewed this Plan of Care and certify that the skilled therapy services above are required to meet the patient?s needs. Physician Signature Date Printed Name and Credentials Clinical Instructor Signature Printed Name and Credentials
--- NOTE | 2022-04-16 10:50 | PT.OTN ---
Current Diagnoses Unilateral primary osteoarthritis, left knee (04/16/22) Physical Therapy Treatment Note PT-OP-A Visit Information Start: 04/07/22 09:54 Freq: Status: Active Protocol: Document 04/16/22 09:50 [facility] (Rec: 04/16/22 10:37 [facility] [id number]) Out-Patient Physical Therapy Visit Information Visit Information Visit Type Treatment Note Visit Start Time 09:50 Visit Stop Time 10:50 Total Visit Minutes 60 Visit Number 3 Number of LEAD FIRE PROTECTION ENGINEER Visits 1 PT-OP-B Current Condition Start: 04/07/22 09:54 Freq: Status: Active Protocol: Document 04/14/22 14:31 [facility] (Rec: 04/14/22 15:15 [facility] [id number]) Current Condition History of Current Condition Onset Date 04/09/22 Current Complaints L TKA 04/09/22 History of Current Condition s/p left TKA 04/09/22, discharged home. Reports has been doing exercises a couple times per day, though painful and has a difficult time lifting his leg. Has history of bilateral LE swelling and left LE is swollen worse after surgery. States he has been icing. Using SPC to PT today, states I'm not a walker melony. Personal Factors Other Personal Factors That May Effect hypertension, R knee pain, Therapy/Recovery swelling PT-OP-C Subjective Start: 04/07/22 09:54 Freq: Status: Active Protocol: Document 04/16/22 09:50 [facility] (Rec: 04/16/22 10:37 SP [id number]) OP-PT Subjective Patient Comments Patient Comments Pt stated doing well with HEP 1-3x/day only able 1x yesterday due to pain more, keeping activity low ridley. Pt states follows up with ortho next week and thigh compression hose will becoming in mail soon. Compliant with ice/elevation. IFC and CP PT-OP-G Mobility & Gait Start: 04/07/22 09:54 Freq: Status: Active Protocol: Document 04/14/22 14:31 [facility] (Rec: 04/14/22 16:45 [facility] [id number]) OP Mobility Evaluation Transfers Sit to Stand minimal use of left LE Stair Climbing Evaluation Comments Stair Climbing Comments deferred today. ASsess next session PT-OP-J Posture/Palpation/Skin Start: 04/07/22 09:54 Freq: Status: Active Protocol: Document 04/14/22 14:31 [facility] (Rec: 04/14/22 16:45 [facility] [id number]) Skin Assessment Edema Assessment Left Leg Edema Type Pitting Edema Degree 3+ Subjective Edema Description Tightness Comments throughout left knee, lower leg, ankle PT-OP-K Range of Motion Start: 04/07/22 09:54 Freq: Status: Active Protocol: Document 04/16/22 09:50 SP (Rec: 04/16/22 10:37 SP [id number]) Knee Goniometric Range of Motion Knee Left Knee ROM WFL No Patient Position Supine Flexion Active (degrees) 85 Flexion Passive (degrees) 90 Extension Active (degrees) 4 Extension Passive (degrees) 5 Comments supine foot propped up on foam rectangle roller PT-OP-M Strength Start: 04/07/22 09:54 Freq: Status: Active Protocol: Document 04/14/22 14:31 [facility] (Rec: 04/14/22 16:45 [facility] [id number]) Knee Strength Knee Manual Muscle Testing Left Flexion (S2) 3- Fair- Extension (L3) 3- Fair- PT-OP-Q Treatments Start: 04/07/22 09:54 Freq: Status: Active Protocol: Document 04/16/22 09:50 SP (Rec: 04/16/22 10:37 SP [id number]) Cardio Equipment Recumbent Elliptical (ActivIdentity) Duration (Minutes) 5 Resistance 1 Other UEs/ LEs easy ROM approx 90 deg knee flexion, good response, less tightness. Therapeutic Exercises Supine Exercises SAQ Side bilateral Reps/Minutes 10x Comments mod physical assist left LE heel slide Side left Resistance AAROM w/ strap Equipment Used pillowcase and parachute on left LE Reps/Minutes 10 Comments cues for right knee bent passive knee ext Side left Reps/Minutes 30 SLR Side left Equipment Used mod PT assist Reps/Minutes 10x Comments cues for core activation, quad set faca, and ankle df prior to lift. quad sets Supine Exercise Name 1. quick flick for activation x5 2. hold 5th isometric quad set Side left Equipment Used foot propped up on roller Reps/Minutes 5s hold x10 Comments good response quad fac post quick flick and reduced post chain recruitment ankle pumps Supine Exercise Name ABCs disussed change to for increased mulitidirectional Side left Resistance AROM Reps/Minutes A-Z Comments painfree, assist circulation return and assist swelling Sitting Exercises LAQ Side left Resistance AROM Equipment Used elevated black table approx 18 . Reps/Minutes x3 Comments discomfort so hold for now. Manual Therapy Treatment Soft Tissue Mobilization retrograde massage Body Location L foot, ankle, calf Mobilization Type Myofascial Release Intensity/Depth Superficial Body Position Supine Comments ed for assist gently retrograde with light lotion, not near incision. Decreased foot and ankle swelling post. Noted bruising foot, calf, behind L knee normal and will improve with healing time. PT-OP-R Modalities Start: 04/16/22 10:43 Freq: Status: Active Protocol: Document 04/16/22 09:50 SP (Rec: 04/16/22 11:23 SP [id number]) Electric Stimulation Electric Stimulation IFC/Premod Body Location L med/lat knee Duration (Minutes) 15 Intensity 47 High/Low High Cycle Continuous Patient Position Supine Combined With Heat/Cold Cold Pack Comments good feedback response for swelling. - 2 lrg pads today. Hot Pack/Cold Pack Treatment cryocuff Location L knee Patient Position Supine Treatment Duration (minutes) 15 Patient Tolerance Good Comments w/pre mod PT-OP-T Assessment and Plan Start: 04/07/22 09:54 Freq: Status: Active Protocol: Document 04/16/22 09:50 SP (Rec: 04/16/22 10:37 SP [id number]) Physical Therapy Assessment Goals Three Impairment Strength Short Term Goal (STG) Meet will be independent and consistent with a HEP for his knee. STG Duration 04/29/22 Riveter Helper Goal (LTG) Meet will show improved knee strength by moving from sit to stand without UE support. LTG Duration 06/17/22 Two Impairment Gait Short Term Goal (STG) Meet will ambulate for 6 minutes over smooth surface without assistive device. STG Duration 04/29/22 Custodial Goal (LTG) Meet will ascend and descend a flight of stairs with an alternating gait pattern. LTG Duration 06/17/22 One Impairment Range Short Term Goal (STG) Meet will improve his PROM left kneeto 5-100. STG Duration 04/29/22 Riveter Helper Goal (LTG) Meet will improve his AROM left knee to 0-120. LTG Duration 06/17/22 Assessment Summary Assessment Good response to biodex gentle ROM, suprised feels better, decreases tightness. Pt improved quad facilitation post HEP, improvement in L knee AROM, extension 6 deg gain, flexion 5 deg gain. Ed pt how set up and use stim for assist welling with CP at home while elevated. Eventually Greenlandic stim 5:10 for quad strengthening. Physical Therapy Plan Frequency and Duration Frequency of Treatment 21 visits Duration of Treatment 10 weeks Plan of Care Start Date 04/08/22 Plan of Care End Date 06/17/22 Therapeutic Interventions Therapeutic Interventions Aquatic Therapy,Gait Training, Home Exercise Program,Joint Mobilizations,Manual Therapy, Neuromuscular Re-education, Patient/Caregiver Education, Self-Care/Home Management, Therapeutic Activities, Therapeutic Exercises Modalities Cold Pack/Ice Massage,Electric Stimulation,Hot Packs Next Visit Focus/Plan Next Note Type Treatment Note Next Visit Plan Assess fit of compression stocking if came in mail. Continue gentle Biodex or recumbant ex bike progress TKA ex program including gravity assisted knee flex ROM, Add TKE and side stepping at rail and work on sit to stand from elevated surface next tx. Ice and elevation with IFES/pre mod to finish. REtrograde massage. Future tx Greenlandic stim w/ quad set ok next tx, can add CP.
--- NOTE | 2022-04-18 17:09 | PT.OTN ---
Current Diagnoses Unilateral primary osteoarthritis, left knee (04/18/22) Physical Therapy Treatment Note PT-OP-A Visit Information Start: 04/07/22 09:54 Freq: Status: Active Protocol: Document 04/18/22 08:16 LRN (Rec: 04/18/22 09:05 LRN [id number]) Out-Patient Physical Therapy Visit Information Visit Information Visit Type Treatment Note Visit Start Time 08:16 Visit Stop Time 09:14 Total Visit Minutes 58 Visit Number 4 PT-OP-B Current Condition Start: 04/07/22 09:54 Freq: Status: Active Protocol: Document 04/14/22 14:31 SAK (Rec: 04/14/22 15:15 SAK [id number]) Current Condition History of Current Condition Onset Date 04/09/22 Current Complaints L TKA 04/09/22 History of Current Condition s/p left TKA 04/09/22, discharged home. Reports has been doing exercises a couple times per day, though painful and has a difficult time lifting his leg. Has history of bilateral LE swelling and left LE is swollen worse after surgery. States he has been icing. Using SPC to PT today, states I'm not a walker melony. Personal Factors Other Personal Factors That May Effect hypertension, R knee pain, Therapy/Recovery swelling PT-OP-C Subjective Start: 04/07/22 09:54 Freq: Status: Active Protocol: Document 04/18/22 08:16 LRN (Rec: 04/18/22 09:05 LRN [id number]) OP-PT Subjective Patient Comments Patient Comments HAs questions regarding the sock aid. States he is elevating, icing and doing ankle movements. LLE is 4/10 after taking a pain pill this morning. PT-OP-G Mobility & Gait Start: 04/07/22 09:54 Freq: Status: Active Protocol: Document 04/14/22 14:31 SAK (Rec: 04/14/22 16:45 SAK [id number]) OP Mobility Evaluation Transfers Sit to Stand minimal use of left LE Stair Climbing Evaluation Comments Stair Climbing Comments deferred today. ASsess next session PT-OP-J Posture/Palpation/Skin Start: 04/07/22 09:54 Freq: Status: Active Protocol: Document 04/14/22 14:31 SAK (Rec: 04/14/22 16:45 SAK [id number]) Skin Assessment Edema Assessment Left Leg Edema Type Pitting Edema Degree 3+ Subjective Edema Description Tightness Comments throughout left knee, lower leg, ankle PT-OP-K Range of Motion Start: 04/07/22 09:54 Freq: Status: Active Protocol: Document 04/16/22 09:50 SP (Rec: 04/16/22 10:37 SP [id number]) Knee Goniometric Range of Motion Knee Left Knee ROM WFL No Patient Position Supine Flexion Active (degrees) 85 Flexion Passive (degrees) 90 Extension Active (degrees) 4 Extension Passive (degrees) 5 Comments supine foot propped up on foam rectangle roller PT-OP-M Strength Start: 04/07/22 09:54 Freq: Status: Active Protocol: Document 04/14/22 14:31 SAK (Rec: 04/14/22 16:45 SAK [id number]) Knee Strength Knee Manual Muscle Testing Left Flexion (S2) 3- Fair- Extension (L3) 3- Fair- PT-OP-Q Treatments Start: 04/07/22 09:54 Freq: Status: Active Protocol: Document 04/18/22 08:16 LRN (Rec: 04/18/22 09:05 LRN [id number]) Therapeutic Exercises Supine Exercises LLE Lymph ex for TKA Supine Exercise Name Lymph ex for TKA Side left Reps/Minutes 1 set heel slide Supine Exercise Name Knee flex with TBAll Side left Equipment Used Small Red TBall Reps/Minutes 6' Comments cues for right knee bent and hold stretch quad sets Supine Exercise Name QS Side left Reps/Minutes 10SH x 10 Manual Therapy Treatment Soft Tissue Mobilization LE lymph massage Body Location LLE Mobilization Type Manual Lymphatic Drainage Intensity/Depth Superficial Body Position Supine Self-Care/Home Management Treatment Education Other Education Educated pt in use of sock aid with compression sock. Educated, issued & reviewed Do 's & Don'ts of LE Lyphedema. Educated pt in LE lymph self massage. Activities Self-Care/Home Management Activities Issued & reviewed Self care program: LE Lymphedema exercises & Manual Lymphatic Draininge LE Sequencing. PT-OP-R Modalities Start: 04/16/22 10:43 Freq: Status: Active Protocol: Document 04/18/22 08:16 LRN (Rec: 04/18/22 09:05 LRN [id number]) Hot Pack/Cold Pack Treatment cryocuff Location L knee Patient Position Supine Treatment Duration (minutes) 10 Patient Tolerance Good Comments Legs elevated for edema on bolster. PT-OP-T Assessment and Plan Start: 04/07/22 09:54 Freq: Status: Active Protocol: Document 04/18/22 08:16 LRN (Rec: 04/18/22 09:05 LRN [id number]) Physical Therapy Assessment Goals Three Impairment Strength Short Term Goal (STG) Meet will be independent and consistent with a HEP for his knee. STG Duration 04/29/22 Senior Living Goal (LTG) Meet will show improved knee strength by moving from sit to stand without UE support. LTG Duration 06/17/22 Two Impairment Gait Short Term Goal (STG) Meet will ambulate for 6 minutes over smooth surface without assistive device. STG Duration 04/29/22 Senior Living Goal (LTG) Meet will ascend and descend a flight of stairs with an alternating gait pattern. LTG Duration 06/17/22 One Impairment Range Short Term Goal (STG) Meet will improve his PROM left kneeto 5-100. STG Duration 04/29/22 Pet Care Technician Goal (LTG) Meet will improve his AROM left knee to 0-120. LTG Duration 06/17/22 Assessment Summary Assessment Good tolerance to ex and appears to have a good understanding of self LE lymph massage, but review probably needed and training of spouse. Pt needs more help with compression hose due to excessive swelling in L lower leg, with compression hose possibly too small at this time. Physical Therapy Plan Frequency and Duration Frequency of Treatment 21 visits Duration of Treatment 10 weeks Plan of Care Start Date 04/08/22 Plan of Care End Date 06/17/22 Next Visit Focus/Plan Next Note Type Treatment Note Next Visit Plan Recheck pt ability to don compresion sock. Recheck self lymph massage progress. Continue gentle Biodex or recumbant ex bike progress TKA ex program including gravity assisted knee flex ROM, Add TKE and side stepping at rail and work on sit to stand from elevated surface next tx. Ice and elevation with IFES/pre mod to finish. Future tx [place] stim w/ quad set ok next tx, can add CP.
--- NOTE | 2022-04-21 09:51 | PT.OTN ---
Current Diagnoses Unilateral primary osteoarthritis, left knee (04/21/22) Physical Therapy Treatment Note PT-OP-A Visit Information Start: 04/07/22 09:54 Freq: Status: Active Protocol: Document 04/21/22 07:26 [facility] (Rec: 04/21/22 09:08 [facility] [id number]) Out-Patient Physical Therapy Visit Information Visit Information Visit Type Treatment Note Visit Start Time 07:31 Visit Stop Time 08:30 Total Visit Minutes 59 Visit Number 5 Number of REED MAKER Visits 0 PT-OP-B Current Condition Start: 04/07/22 09:54 Freq: Status: Active Protocol: Document 04/14/22 14:31 SAK (Rec: 04/14/22 15:15 SAK [id number]) Current Condition History of Current Condition Onset Date 04/09/22 Current Complaints L TKA 04/09/22 History of Current Condition s/p left TKA 04/09/22, discharged home. Reports has been doing exercises a couple times per day, though painful and has a difficult time lifting his leg. Has history of bilateral LE swelling and left LE is swollen worse after surgery. States he has been icing. Using SPC to PT today, states I'm not a walker melony. Personal Factors Other Personal Factors That May Effect hypertension, R knee pain, Therapy/Recovery swelling PT-OP-C Subjective Start: 04/07/22 09:54 Freq: Status: Active Protocol: Document 04/21/22 07:26 [facility] (Rec: 04/21/22 09:08 [facility] [id number]) OP-PT Subjective Patient Comments Patient Comments Pt reports pain control is getting better and he is slowly getting off them. Pt reprots he got a new compression sock yesterday and wore it a while yesterday which helped w/swelling. He feels like the bandage is limiting his ROM PT-OP-G Mobility & Gait Start: 04/07/22 09:54 Freq: Status: Active Protocol: Document 04/14/22 14:31 SAK (Rec: 04/14/22 16:45 SAK [id number]) OP Mobility Evaluation Transfers Sit to Stand minimal use of left LE Stair Climbing Evaluation Comments Stair Climbing Comments deferred today. ASsess next session PT-OP-J Posture/Palpation/Skin Start: 04/07/22 09:54 Freq: Status: Active Protocol: Document 04/14/22 14:31 SAK (Rec: 04/14/22 16:45 SAK [id number]) Skin Assessment Edema Assessment Left Leg Edema Type Pitting Edema Degree 3+ Subjective Edema Description Tightness Comments throughout left knee, lower leg, ankle PT-OP-K Range of Motion Start: 04/07/22 09:54 Freq: Status: Active Protocol: Document 04/16/22 09:50 SP (Rec: 04/16/22 10:37 SP [id number]) Knee Goniometric Range of Motion Knee Left Knee ROM WFL No Patient Position Supine Flexion Active (degrees) 85 Flexion Passive (degrees) 90 Extension Active (degrees) 4 Extension Passive (degrees) 5 Comments supine foot propped up on foam rectangle roller PT-OP-M Strength Start: 04/07/22 09:54 Freq: Status: Active Protocol: Document 04/14/22 14:31 SAK (Rec: 04/14/22 16:45 SAK [id number]) Knee Strength Knee Manual Muscle Testing Left Flexion (S2) 3- Fair- Extension (L3) 3- Fair- PT-OP-Q Treatments Start: 04/07/22 09:54 Freq: Status: Active Protocol: Document 04/21/22 07:26 [facility] (Rec: 04/21/22 09:08 [facility] [id number]) Cardio Equipment Recumbent Stepper (Sci-Fit) Duration (Minutes) 6 Resistance 1 Seat Position 12-11 Gym Equipment Shuttle Recovery Bilateral Squats Resistance 50# Shuttle Recovery Platform Stable Reps/Time x15 Therapeutic Exercises Supine Exercises heel slide Supine Exercise Name Knee flex with TBAll Side left Equipment Used Small Red TBall Reps/Minutes [id number] Sitting Exercises HS stretch Side left Reps/Minutes 30 sec LAQ Side left Resistance AROM Reps/Minutes x8 Standing Exercises sit to stand Standing Exercise Name 22 in plinth Side bilateral Reps/Minutes 10 heel raises Side bilateral Reps/Minutes 15 sidestep Side bilateral Equipment Used yellow band Reps/Minutes 20ft TKE Side left Equipment Used L1 Reps/Minutes 15 Manual Therapy Treatment Soft Tissue Mobilization post Body Location lat HS, calf Mobilization Type Rolling Intensity/Depth Moderate Body Position Supine PT-OP-R Modalities Start: 04/16/22 10:43 Freq: Status: Active Protocol: Document 04/21/22 07:26 [facility] (Rec: 04/21/22 09:08 [facility] [id number]) Electric Stimulation Electric Stimulation IFC/Premod Body Location L med/lat knee Duration (Minutes) 15 Intensity 32 High/Low High Cycle Continuous Patient Position Supine Combined With Heat/Cold Cold Pack Comments good feedback response for swelling. - 2 lrg pads today. PT-OP-T Assessment and Plan Start: 04/07/22 09:54 Freq: Status: Active Protocol: Document 04/21/22 07:26 [facility] (Rec: 04/21/22 09:08 [facility] [id number]) Physical Therapy Assessment Goals Three Impairment Strength Short Term Goal (STG) Meet will be independent and consistent with a HEP for his knee. STG Duration 04/29/22 Ordnance Artificer Helper Goal (LTG) Meet will show improved knee strength by moving from sit to stand without UE support. LTG Duration 06/17/22 Two Impairment Gait Short Term Goal (STG) Meet will ambulate for 6 minutes over smooth surface without assistive device. STG Duration 04/29/22 Jail Goal (LTG) Meet will ascend and descend a flight of stairs with an alternating gait pattern. LTG Duration 06/17/22 One Impairment Range Short Term Goal (STG) Meet will improve his PROM left kneeto 5-100. STG Duration 04/29/22 Jail Goal (LTG) Meet will improve his AROM left knee to 0-120. LTG Duration 06/17/22 Assessment Summary Assessment Pt did well with ssession but did note some soreness. He does lack ext and has some swelling still but pt reprots it is much less. Physical Therapy Plan Frequency and Duration Frequency of Treatment 21 visits Duration of Treatment 10 weeks Plan of Care Start Date 04/08/22 Plan of Care End Date 06/17/22 Next Visit Focus/Plan Next Note Type Treatment Note Next Visit Plan Cont stepper w/progression of ROM and quad stregth for TKA program, review TKE, heel raises, sit to stands from elevated surface and side step
--- NOTE | 2022-04-23 08:44 | PT.OTN ---
Current Diagnoses Unilateral primary osteoarthritis, left knee (04/23/22) Physical Therapy Treatment Note PT-OP-A Visit Information Start: 04/07/22 09:54 Freq: Status: Active Protocol: Document 04/23/22 07:30 AMB (Rec: 04/23/22 08:43 AMB [id number]) Out-Patient Physical Therapy Visit Information Visit Information Visit Type Treatment Note Visit Start Time 07:30 Visit Stop Time 08:15 Total Visit Minutes 60 Visit Number 04/09 PT-OP-B Current Condition Start: 04/07/22 09:54 Freq: Status: Active Protocol: Document 04/14/22 14:31 SAK (Rec: 04/14/22 15:15 SAK [id number]) Current Condition History of Current Condition Onset Date 04/09/22 Current Complaints L TKA 04/09/22 History of Current Condition s/p left TKA 04/09/22, discharged home. Reports has been doing exercises a couple times per day, though painful and has a difficult time lifting his leg. Has history of bilateral LE swelling and left LE is swollen worse after surgery. States he has been icing. Using SPC to PT today, states I'm not a walker melony. Personal Factors Other Personal Factors That May Effect hypertension, R knee pain, Therapy/Recovery swelling PT-OP-C Subjective Start: 04/07/22 09:54 Freq: Status: Active Protocol: Document 04/23/22 07:30 AMB (Rec: 04/23/22 08:43 AMB [id number]) OP-PT Subjective Patient Comments Patient Comments Sleeping is challenging, wants to sleep on his side, has used a lot of pillows and that doesn't help. Get's on his back and doesn't like that. PT-OP-G Mobility & Gait Start: 04/07/22 09:54 Freq: Status: Active Protocol: Document 04/14/22 14:31 SAK (Rec: 04/14/22 16:45 SAK [id number]) OP Mobility Evaluation Transfers Sit to Stand minimal use of left LE Stair Climbing Evaluation Comments Stair Climbing Comments deferred today. ASsess next session PT-OP-J Posture/Palpation/Skin Start: 04/07/22 09:54 Freq: Status: Active Protocol: Document 04/14/22 14:31 SAK (Rec: 04/14/22 16:45 SAK [id number]) Skin Assessment Edema Assessment Left Leg Edema Type Pitting Edema Degree 3+ Subjective Edema Description Tightness Comments throughout left knee, lower leg, ankle PT-OP-K Range of Motion Start: 04/07/22 09:54 Freq: Status: Active Protocol: Document 04/16/22 09:50 SP (Rec: 04/16/22 10:37 SP [id number]) Knee Goniometric Range of Motion Knee Left Knee ROM WFL No Patient Position Supine Flexion Active (degrees) 85 Flexion Passive (degrees) 90 Extension Active (degrees) 4 Extension Passive (degrees) 5 Comments supine foot propped up on foam rectangle roller PT-OP-M Strength Start: 04/07/22 09:54 Freq: Status: Active Protocol: Document 04/14/22 14:31 SAK (Rec: 04/14/22 16:45 SAK [id number]) Knee Strength Knee Manual Muscle Testing Left Flexion (S2) 3- Fair- Extension (L3) 3- Fair- PT-OP-Q Treatments Start: 04/07/22 09:54 Freq: Status: Active Protocol: Document 04/23/22 07:30 AMB (Rec: 04/23/22 08:43 AMB [id number]) Cardio Equipment Recumbent Stepper (Sci-Fit) Duration (Minutes) 6 Resistance 1 Seat Position 12-11 Gym Equipment Shuttle Recovery Bilateral Squats Resistance 50# Shuttle Recovery Platform Stable Reps/Time x15 Therapeutic Exercises Supine Exercises heel slide Supine Exercise Name Knee flex with TBAll Side left Equipment Used Small Red TBall Reps/Minutes [id number] Sitting Exercises HS stretch Side left Reps/Minutes 30 sec LAQ Side left Resistance AROM Reps/Minutes x8 Standing Exercises TKE Side left Equipment Used L1 Reps/Minutes 15 Manual Therapy Treatment Soft Tissue Mobilization LE lymph massage Body Location LLE Mobilization Type Manual Lymphatic Drainage Intensity/Depth Superficial Body Position Supine PT-OP-R Modalities Start: 04/16/22 10:43 Freq: Status: Active Protocol: Document 04/21/22 07:26 LR (Rec: 04/21/22 09:08 LR [id number]) Electric Stimulation Electric Stimulation IFC/Premod Body Location L med/lat knee Duration (Minutes) 15 Intensity 32 High/Low High Cycle Continuous Patient Position Supine Combined With Heat/Cold Cold Pack Comments good feedback response for swelling. - 2 lrg pads today. PT-OP-T Assessment and Plan Start: 04/07/22 09:54 Freq: Status: Active Protocol: Document 04/23/22 07:30 AMB (Rec: 04/23/22 08:43 AMB [id number]) Physical Therapy Assessment Goals Three Impairment Strength Short Term Goal (STG) Meet will be independent and consistent with a HEP for his knee. STG Duration 04/29/22 Measuring Clerk Goal (LTG) Meet will show improved knee strength by moving from sit to stand without UE support. LTG Duration 06/17/22 Two Impairment Gait Short Term Goal (STG) Meet will ambulate for 6 minutes over smooth surface without assistive device. STG Duration 04/29/22 Alf Goal (LTG) Meet will ascend and descend a flight of stairs with an alternating gait pattern. LTG Duration 06/17/22 One Impairment Range Short Term Goal (STG) Meet will improve his PROM left kneeto 5-100. STG Duration 04/29/22 Alf Goal (LTG) Meet will improve his AROM left knee to 0-120. LTG Duration 06/17/22 Assessment Summary Assessment Tried to help with sleep positioning and pillows. Pt could consider a body pillow, but continued to have pain despite pillow propping. Has a difficult time with sleeping on back due to back pain. Pt attends without AD, with antalgic gait, states is not using SPC. Encouraged to use compression socks due to continued pitting edema. Encouraged to increase icing to at least 3x/day. Pt is seeing MD tomorrow. Physical Therapy Plan Next Visit Focus/Plan Next Note Type Treatment Note Next Visit Plan Cont stepper w/progression of ROM and quad stregth for TKA program, review TKE, heel raises, sit to stands from elevated surface and side step
--- NOTE | 2022-04-30 12:21 | PT.OTN ---
Current Diagnoses Unilateral primary osteoarthritis, left knee (04/30/22) Physical Therapy Treatment Note PT-OP-A Visit Information Start: 04/07/22 09:54 Freq: Status: Active Protocol: Document 04/30/22 09:00 AW (Rec: 04/30/22 10:34 AW [id number]) Out-Patient Physical Therapy Visit Information Visit Information Visit Type Treatment Note Visit Start Time 09:48 Visit Stop Time 10:30 Total Visit Minutes 43 Visit Number 05/09 PT-OP-B Current Condition Start: 04/07/22 09:54 Freq: Status: Active Protocol: Document 04/14/22 14:31 SAK (Rec: 04/14/22 15:15 SAK [id number]) Current Condition History of Current Condition Onset Date 04/09/22 Current Complaints L TKA 04/09/22 History of Current Condition s/p left TKA 04/09/22, discharged home. Reports has been doing exercises a couple times per day, though painful and has a difficult time lifting his leg. Has history of bilateral LE swelling and left LE is swollen worse after surgery. States he has been icing. Using SPC to PT today, states I'm not a walker melony. Personal Factors Other Personal Factors That May Effect hypertension, R knee pain, Therapy/Recovery swelling PT-OP-C Subjective Start: 04/07/22 09:54 Freq: Status: Active Protocol: Document 04/30/22 09:00 AW (Rec: 04/30/22 10:34 AW [id number]) OP-PT Subjective Patient Comments Patient Comments Feeling better since bandage came off. Sleeping is still troublesome but somewhat improved with foot portion of bed adjusted up. Pt feels swelling has improved. PT-OP-G Mobility & Gait Start: 04/07/22 09:54 Freq: Status: Active Protocol: Document 04/14/22 14:31 SAK (Rec: 04/14/22 16:45 SAK [id number]) OP Mobility Evaluation Transfers Sit to Stand minimal use of left LE Stair Climbing Evaluation Comments Stair Climbing Comments deferred today. ASsess next session PT-OP-J Posture/Palpation/Skin Start: 04/07/22 09:54 Freq: Status: Active Protocol: Document 04/14/22 14:31 SAK (Rec: 04/14/22 16:45 SAK [id number]) Skin Assessment Edema Assessment Left Leg Edema Type Pitting Edema Degree 3+ Subjective Edema Description Tightness Comments throughout left knee, lower leg, ankle PT-OP-K Range of Motion Start: 04/07/22 09:54 Freq: Status: Active Protocol: Document 04/16/22 09:50 SP (Rec: 04/16/22 10:37 SP [id number]) Knee Goniometric Range of Motion Knee Left Knee ROM WFL No Patient Position Supine Flexion Active (degrees) 85 Flexion Passive (degrees) 90 Extension Active (degrees) 4 Extension Passive (degrees) 5 Comments supine foot propped up on foam rectangle roller PT-OP-M Strength Start: 04/07/22 09:54 Freq: Status: Active Protocol: Document 04/14/22 14:31 SAK (Rec: 04/14/22 16:45 SAK [id number]) Knee Strength Knee Manual Muscle Testing Left Flexion (S2) 3- Fair- Extension (L3) 3- Fair- PT-OP-Q Treatments Start: 04/07/22 09:54 Freq: Status: Active Protocol: Document 04/30/22 09:00 AW (Rec: 04/30/22 10:34 AW [id number]) Cardio Equipment Recumbent Stepper (Sci-Fit) Duration (Minutes) 6 Resistance 1 Seat Position 12-11 Gym Equipment Shuttle Recovery Unilateral Squats Details uni (left) Resistance 25# Shuttle Recovery Platform Stable Reps/Time 2x10 Bilateral Squats Resistance 50# Shuttle Recovery Platform Stable Reps/Time x15 Therapeutic Exercises Supine Exercises heel slide Supine Exercise Name Knee flex with TBAll Side left Equipment Used Small Red TBall Reps/Minutes [id number] Comments AROM 2-90 today Sitting Exercises HS stretch Side left Reps/Minutes 30 sec Standing Exercises sit to stand Standing Exercise Name 21 in plinth Side bilateral Reps/Minutes 10 heel raises Side bilateral Reps/Minutes 15 TKE Side left Equipment Used L3 Reps/Minutes 15 Gait Training Gait Activity 1 Device Used no AD Level of Assistance SBA, cues Surface firm Distance/Duration 50' x 2 Treatment Focus heel/toe Manual Therapy Treatment Soft Tissue Mobilization LE lymph massage Body Location LLE Mobilization Type Manual Lymphatic Drainage Intensity/Depth Superficial Body Position Supine PT-OP-R Modalities Start: 04/16/22 10:43 Freq: Status: Active Protocol: Document 04/21/22 07:26 [facility] (Rec: 04/21/22 09:08 [facility] [id number]) Electric Stimulation Electric Stimulation IFC/Premod Body Location L med/lat knee Duration (Minutes) 15 Intensity 32 High/Low High Cycle Continuous Patient Position Supine Combined With Heat/Cold Cold Pack Comments good feedback response for swelling. - 2 lrg pads today. PT-OP-T Assessment and Plan Start: 04/07/22 09:54 Freq: Status: Active Protocol: Document 04/30/22 09:00 AW (Rec: 04/30/22 10:34 AW [id number]) Physical Therapy Assessment Goals Three Impairment Strength Short Term Goal (STG) Meet will be independent and consistent with a HEP for his knee. STG Duration 04/29/22 Cleaners Goal (LTG) Meet will show improved knee strength by moving from sit to stand without UE support. LTG Duration 06/17/22 Two Impairment Gait Short Term Goal (STG) Meet will ambulate for 6 minutes over smooth surface without assistive device. STG Duration 04/29/22 Senior Living Goal (LTG) Meet will ascend and descend a flight of stairs with an alternating gait pattern. LTG Duration 06/17/22 One Impairment Range Short Term Goal (STG) Meet will improve his PROM left kneeto 5-100. STG Duration 04/29/22 Senior Living Goal (LTG) Meet will improve his AROM left knee to 0-120. LTG Duration 06/17/22 Assessment Summary Assessment Pt saw ortho last week and reported no concern with progress. AROM today was 2-90 degrees. Spent time today on MLD for LLE edema management and reviewed HEP. Pt tolerated single leg press on shuttle. Physical Therapy Plan Next Visit Focus/Plan Next Note Type Treatment Note Next Visit Plan Cont stepper w/progression of ROM and quad stregth for TKA program, review TKE, heel raises, sit to stands from elevated surface and side step
--- NOTE | 2022-05-02 12:57 | PT.OTN ---
Current Diagnoses Unilateral primary osteoarthritis, left knee (05/02/22) Physical Therapy Treatment Note PT-OP-A Visit Information Start: 04/07/22 09:54 Freq: Status: Active Protocol: Document 05/02/22 08:18 AMB (Rec: 05/02/22 09:00 AMB [id number]) Out-Patient Physical Therapy Visit Information Visit Information Visit Type Treatment Note Visit Start Time 08:15 Visit Stop Time 09:00 Total Visit Minutes 45 Visit Number 06/09 PT-OP-B Current Condition Start: 04/07/22 09:54 Freq: Status: Active Protocol: Document 04/14/22 14:31 SAK (Rec: 04/14/22 15:15 SAK [id number]) Current Condition History of Current Condition Onset Date 04/09/22 Current Complaints L TKA 04/09/22 History of Current Condition s/p left TKA 04/09/22, discharged home. Reports has been doing exercises a couple times per day, though painful and has a difficult time lifting his leg. Has history of bilateral LE swelling and left LE is swollen worse after surgery. States he has been icing. Using SPC to PT today, states I'm not a walker melony. Personal Factors Other Personal Factors That May Effect hypertension, R knee pain, Therapy/Recovery swelling PT-OP-C Subjective Start: 04/07/22 09:54 Freq: Status: Active Protocol: Document 05/02/22 08:18 AMB (Rec: 05/02/22 09:00 AMB [id number]) OP-PT Subjective Patient Comments Patient Comments Pt felt better after lymphatic drainage last visit. PT-OP-G Mobility & Gait Start: 04/07/22 09:54 Freq: Status: Active Protocol: Document 04/14/22 14:31 SAK (Rec: 04/14/22 16:45 SAK [id number]) OP Mobility Evaluation Transfers Sit to Stand minimal use of left LE Stair Climbing Evaluation Comments Stair Climbing Comments deferred today. ASsess next session PT-OP-J Posture/Palpation/Skin Start: 04/07/22 09:54 Freq: Status: Active Protocol: Document 04/14/22 14:31 SAK (Rec: 04/14/22 16:45 SAK [id number]) Skin Assessment Edema Assessment Left Leg Edema Type Pitting Edema Degree 3+ Subjective Edema Description Tightness Comments throughout left knee, lower leg, ankle PT-OP-K Range of Motion Start: 04/07/22 09:54 Freq: Status: Active Protocol: Document 04/16/22 09:50 SP (Rec: 04/16/22 10:37 SP [id number]) Knee Goniometric Range of Motion Knee Left Knee ROM WFL No Patient Position Supine Flexion Active (degrees) 85 Flexion Passive (degrees) 90 Extension Active (degrees) 4 Extension Passive (degrees) 5 Comments supine foot propped up on foam rectangle roller PT-OP-M Strength Start: 04/07/22 09:54 Freq: Status: Active Protocol: Document 04/14/22 14:31 SAK (Rec: 04/14/22 16:45 SAK [id number]) Knee Strength Knee Manual Muscle Testing Left Flexion (S2) 3- Fair- Extension (L3) 3- Fair- PT-OP-Q Treatments Start: 04/07/22 09:54 Freq: Status: Active Protocol: Document 05/02/22 08:18 AMB (Rec: 05/02/22 09:00 AMB [id number]) Cardio Equipment Recumbent Stepper (Sci-Fit) Duration (Minutes) 6 Resistance 5 Seat Position 12-11 Gym Equipment Shuttle Recovery Unilateral Squats Details uni (left) Resistance 25# Shuttle Recovery Platform Stable Reps/Time 2x10 Bilateral Squats Resistance 50# Shuttle Recovery Platform Stable Reps/Time 2x15 Therapeutic Exercises Supine Exercises passive knee ext Side left Reps/Minutes 30 Sitting Exercises HS stretch Side left Reps/Minutes 30 sec Manual Therapy Treatment Soft Tissue Mobilization LE lymph massage Body Location LLE Mobilization Type Manual Lymphatic Drainage Intensity/Depth Superficial Body Position Supine PT-OP-R Modalities Start: 04/16/22 10:43 Freq: Status: Active Protocol: Document 04/21/22 07:26 [facility]H (Rec: 04/21/22 09:08 [facility]H [id number]) Electric Stimulation Electric Stimulation IFC/Premod Body Location L med/lat knee Duration (Minutes) 15 Intensity 32 High/Low High Cycle Continuous Patient Position Supine Combined With Heat/Cold Cold Pack Comments good feedback response for swelling. - 2 lrg pads today. PT-OP-T Assessment and Plan Start: 04/07/22 09:54 Freq: Status: Active Protocol: Document 05/02/22 08:18 AMB (Rec: 05/02/22 09:00 AMB [id number]) Physical Therapy Assessment Goals Three Impairment Strength Short Term Goal (STG) Meet will be independent and consistent with a HEP for his knee. STG Duration 04/29/22 Weaving Machine Operator Goal (LTG) Meet will show improved knee strength by moving from sit to stand without UE support. LTG Duration 06/17/22 Two Impairment Gait Short Term Goal (STG) Meet will ambulate for 6 minutes over smooth surface without assistive device. STG Duration 04/29/22 Weaving Machine Operator Goal (LTG) Meet will ascend and descend a flight of stairs with an alternating gait pattern. LTG Duration 06/17/22 One Impairment Range Short Term Goal (STG) Meet will improve his PROM left kneeto 5-100. STG Duration 04/29/22 Weaving Machine Operator Goal (LTG) Meet will improve his AROM left knee to 0-120. LTG Duration 06/17/22 Assessment Summary Assessment Pt doing well. Swelling continues but less around knee . Is stiffer today due to taking it easy the last couple days due to a stomach bug. Physical Therapy Plan Next Visit Focus/Plan Next Note Type Treatment Note Next Visit Plan Cont stepper w/progression of ROM and quad stregth for TKA program, review TKE, heel raises, sit to stands from elevated surface and side step
--- NOTE | 2022-05-06 13:03 | PT.OTN ---
Current Diagnoses Unilateral primary osteoarthritis, left knee (05/06/22) Physical Therapy Treatment Note PT-OP-A Visit Information Start: 04/07/22 09:54 Freq: Status: Active Protocol: Document 05/06/22 07:31 AMB (Rec: 05/06/22 08:38 AMB [id number]) Out-Patient Physical Therapy Visit Information Visit Information Visit Type Treatment Note Visit Start Time 07:30 Visit Stop Time 08:15 Total Visit Minutes 45 Visit Number 07/10 PT-OP-B Current Condition Start: 04/07/22 09:54 Freq: Status: Active Protocol: Document 04/14/22 14:31 SAK (Rec: 04/14/22 15:15 SAK [id number]) Current Condition History of Current Condition Onset Date 04/09/22 Current Complaints L TKA 04/09/22 History of Current Condition s/p left TKA 04/09/22, discharged home. Reports has been doing exercises a couple times per day, though painful and has a difficult time lifting his leg. Has history of bilateral LE swelling and left LE is swollen worse after surgery. States he has been icing. Using SPC to PT today, states I'm not a walker melony. Personal Factors Other Personal Factors That May Effect hypertension, R knee pain, Therapy/Recovery swelling PT-OP-C Subjective Start: 04/07/22 09:54 Freq: Status: Active Protocol: Document 05/06/22 07:31 AMB (Rec: 05/06/22 08:38 AMB [id number]) OP-PT Subjective Patient Comments Patient Comments Able to sleep on side now. Is wondering about numb patch along lateral aspect of the thigh. Was able to get on elliptical for 15 minutes at home and it went well. PT-OP-G Mobility & Gait Start: 04/07/22 09:54 Freq: Status: Active Protocol: Document 04/14/22 14:31 SAK (Rec: 04/14/22 16:45 SAK [id number]) OP Mobility Evaluation Transfers Sit to Stand minimal use of left LE Stair Climbing Evaluation Comments Stair Climbing Comments deferred today. ASsess next session PT-OP-J Posture/Palpation/Skin Start: 04/07/22 09:54 Freq: Status: Active Protocol: Document 04/14/22 14:31 SAK (Rec: 04/14/22 16:45 SAK [id number]) Skin Assessment Edema Assessment Left Leg Edema Type Pitting Edema Degree 3+ Subjective Edema Description Tightness Comments throughout left knee, lower leg, ankle PT-OP-K Range of Motion Start: 04/07/22 09:54 Freq: Status: Active Protocol: Document 04/16/22 09:50 SP (Rec: 04/16/22 10:37 SP [id number]) Knee Goniometric Range of Motion Knee Left Knee ROM WFL No Patient Position Supine Flexion Active (degrees) 85 Flexion Passive (degrees) 90 Extension Active (degrees) 4 Extension Passive (degrees) 5 Comments supine foot propped up on foam rectangle roller PT-OP-M Strength Start: 04/07/22 09:54 Freq: Status: Active Protocol: Document 04/14/22 14:31 SAK (Rec: 04/14/22 16:45 SAK [id number]) Knee Strength Knee Manual Muscle Testing Left Flexion (S2) 3- Fair- Extension (L3) 3- Fair- PT-OP-Q Treatments Start: 04/07/22 09:54 Freq: Status: Active Protocol: Document 05/06/22 07:30 AMB (Rec: 05/06/22 12:51 AMB [id number]) Cardio Equipment Recumbent Stepper (Sci-Fit) Duration (Minutes) 6 Resistance 5 Seat Position 11-9 Gym Equipment Shuttle Recovery Bilateral Squats Resistance 50# Shuttle Recovery Platform Stable Reps/Time 2x15 Therapeutic Exercises Supine Exercises passive knee ext Side left Reps/Minutes 30 Standing Exercises sit to stand Standing Exercise Name 21 in plinth Side bilateral Reps/Minutes 10 heel raises Side bilateral Reps/Minutes 15 Other Exercises stairs Other Exercise Name ascend and descend- alternating Reps/Minutes 4x4 Manual Therapy Treatment Soft Tissue Mobilization LE lymph massage Body Location LLE Mobilization Type Manual Lymphatic Drainage Intensity/Depth Superficial Body Position Supine Other Other Manual Treatments scar massage PT-OP-R Modalities Start: 04/16/22 10:43 Freq: Status: Active Protocol: Document 04/21/22 07:26 [facility]H (Rec: 04/21/22 09:08 LR [id number]) Electric Stimulation Electric Stimulation IFC/Premod Body Location L med/lat knee Duration (Minutes) 15 Intensity 32 High/Low High Cycle Continuous Patient Position Supine Combined With Heat/Cold Cold Pack Comments good feedback response for swelling. - 2 lrg pads today. PT-OP-T Assessment and Plan Start: 04/07/22 09:54 Freq: Status: Active Protocol: Document 05/06/22 07:31 AMB (Rec: 05/06/22 08:38 AMB [id number]) Physical Therapy Assessment Goals Three Impairment Strength Short Term Goal (STG) Meet will be independent and consistent with a HEP for his knee. STG Duration 04/29/22 Fpc Goal (LTG) Meet will show improved knee strength by moving from sit to stand without UE support. LTG Duration 06/17/22 Two Impairment Gait Short Term Goal (STG) Meet will ambulate for 6 minutes over smooth surface without assistive device. STG Duration 04/29/22 Ends Breakage Clerk Goal (LTG) Meet will ascend and descend a flight of stairs with an alternating gait pattern. LTG Duration 06/17/22 One Impairment Range Short Term Goal (STG) Meet will improve his PROM left kneeto 5-100. STG Duration 04/29/22 Ends Breakage Clerk Goal (LTG) Meet will improve his AROM left knee to 0-120. LTG Duration 06/17/22 Assessment Summary Assessment Meet did well with exercises, descending stairs is still difficult. He could descend with alternating gait with railing but does not have good eccentric control yet. Swelling continues but ROM is improving. Physical Therapy Plan Next Visit Focus/Plan Next Note Type Treatment Note Next Visit Plan Cont stepper w/progression of ROM and quad stregth for TKA program, review TKE, heel raises, sit to stands from elevated surface and side step
--- NOTE | 2022-05-08 09:41 | PT.OTN ---
Current Diagnoses Unilateral primary osteoarthritis, left knee (05/08/22) Physical Therapy Treatment Note PT-OP-A Visit Information Start: 04/07/22 09:54 Freq: Status: Active Protocol: Document 05/08/22 08:58 AMB (Rec: 05/08/22 09:41 AMB [id number]) Out-Patient Physical Therapy Visit Information Visit Information Visit Type Treatment Note Visit Start Time 09:00 Visit Stop Time 09:45 Total Visit Minutes 45 Visit Number 08/09 PT-OP-B Current Condition Start: 04/07/22 09:54 Freq: Status: Active Protocol: Document 04/14/22 14:31 SAK (Rec: 04/14/22 15:15 SAK [id number]) Current Condition History of Current Condition Onset Date 04/09/22 Current Complaints L TKA 04/09/22 History of Current Condition s/p left TKA 04/09/22, discharged home. Reports has been doing exercises a couple times per day, though painful and has a difficult time lifting his leg. Has history of bilateral LE swelling and left LE is swollen worse after surgery. States he has been icing. Using SPC to PT today, states I'm not a walker melony. Personal Factors Other Personal Factors That May Effect hypertension, R knee pain, Therapy/Recovery swelling PT-OP-C Subjective Start: 04/07/22 09:54 Freq: Status: Active Protocol: Document 05/08/22 08:58 AMB (Rec: 05/08/22 09:41 AMB [id number]) OP-PT Subjective Patient Comments Patient Comments Sleep is still an issue. Stiff knee when waking up. PT-OP-G Mobility & Gait Start: 04/07/22 09:54 Freq: Status: Active Protocol: Document 04/14/22 14:31 SAK (Rec: 04/14/22 16:45 SAK [id number]) OP Mobility Evaluation Transfers Sit to Stand minimal use of left LE Stair Climbing Evaluation Comments Stair Climbing Comments deferred today. ASsess next session PT-OP-J Posture/Palpation/Skin Start: 04/07/22 09:54 Freq: Status: Active Protocol: Document 04/14/22 14:31 SAK (Rec: 04/14/22 16:45 SAK [id number]) Skin Assessment Edema Assessment Left Leg Edema Type Pitting Edema Degree 3+ Subjective Edema Description Tightness Comments throughout left knee, lower leg, ankle PT-OP-K Range of Motion Start: 04/07/22 09:54 Freq: Status: Active Protocol: Document 04/16/22 09:50 SP (Rec: 04/16/22 10:37 SP [id number]) Knee Goniometric Range of Motion Knee Left Knee ROM WFL No Patient Position Supine Flexion Active (degrees) 85 Flexion Passive (degrees) 90 Extension Active (degrees) 4 Extension Passive (degrees) 5 Comments supine foot propped up on foam rectangle roller PT-OP-M Strength Start: 04/07/22 09:54 Freq: Status: Active Protocol: Document 04/14/22 14:31 SAK (Rec: 04/14/22 16:45 SAK [id number]) Knee Strength Knee Manual Muscle Testing Left Flexion (S2) 3- Fair- Extension (L3) 3- Fair- PT-OP-Q Treatments Start: 04/07/22 09:54 Freq: Status: Active Protocol: Document 05/08/22 08:58 AMB (Rec: 05/08/22 09:41 AMB [id number]) Cardio Equipment Recumbent Stepper (Sci-Fit) Duration (Minutes) 6 Resistance 5 Seat Position 11-9 Therapeutic Exercises Supine Exercises SAQ Side bilateral Reps/Minutes 10x Comments mod physical assist left LE heel slide Supine Exercise Name Knee flex with TBAll Side left Equipment Used Small Red TBall Reps/Minutes [id number] Comments AROM 2-90 today SLR Side left Equipment Used mod PT assist Reps/Minutes 10x Comments cues for core activation, quad set faca, and ankle df prior to lift. Standing Exercises sit to stand Standing Exercise Name 21 in plinth Side bilateral Reps/Minutes 10 Other Exercises stairs Other Exercise Name ascend and descend- alternating Reps/Minutes 4x4 Manual Therapy Treatment Soft Tissue Mobilization LE lymph massage Body Location LLE Mobilization Type Manual Lymphatic Drainage Intensity/Depth Superficial Body Position Supine Comments with scar mobilization PT-OP-R Modalities Start: 04/16/22 10:43 Freq: Status: Active Protocol: Document 04/21/22 07:26 [facility] (Rec: 04/21/22 09:08 LR [id number]) Electric Stimulation Electric Stimulation IFC/Premod Body Location L med/lat knee Duration (Minutes) 15 Intensity 32 High/Low High Cycle Continuous Patient Position Supine Combined With Heat/Cold Cold Pack Comments good feedback response for swelling. - 2 lrg pads today. PT-OP-T Assessment and Plan Start: 04/07/22 09:54 Freq: Status: Active Protocol: Document 05/08/22 08:58 AMB (Rec: 05/08/22 09:41 AMB [id number]) Physical Therapy Assessment Assessment Summary Assessment Pt more swollen today. 90 degrees of flexion, encouraged in continued ROM/swellning management. Physical Therapy Plan Next Visit Focus/Plan Next Note Type Treatment Note Next Visit Plan Cont stepper w/progression of ROM and quad stregth for TKA program, review TKE, heel raises, sit to stands from elevated surface and side step
--- NOTE | 2022-05-13 16:02 | PT.OTN ---
Current Diagnoses Unilateral primary osteoarthritis, left knee (05/13/22) Physical Therapy Treatment Note PT-OP-A Visit Information Start: 04/07/22 09:54 Freq: Status: Active Protocol: Document 05/13/22 15:22 [facility] (Rec: 05/13/22 16:02 [facility] [id number]) Out-Patient Physical Therapy Visit Information Visit Information Visit Type Treatment Note Visit Start Time 15:20 Visit Stop Time 16:10 Total Visit Minutes 50 Visit Number 09/09 Number of ELECTRICAL ENGINEERING PROFESSOR Visits 0 PT-OP-B Current Condition Start: 04/07/22 09:54 Freq: Status: Active Protocol: Document 04/14/22 14:31 SAK (Rec: 04/14/22 15:15 SAK [id number]) Current Condition History of Current Condition Onset Date 04/09/22 Current Complaints L TKA 04/09/22 History of Current Condition s/p left TKA 04/09/22, discharged home. Reports has been doing exercises a couple times per day, though painful and has a difficult time lifting his leg. Has history of bilateral LE swelling and left LE is swollen worse after surgery. States he has been icing. Using SPC to PT today, states I'm not a walker melony. Personal Factors Other Personal Factors That May Effect hypertension, R knee pain, Therapy/Recovery swelling PT-OP-C Subjective Start: 04/07/22 09:54 Freq: Status: Active Protocol: Document 05/13/22 15:22 [facility] (Rec: 05/13/22 16:02 [facility] [id number]) OP-PT Subjective Patient Comments Patient Comments pt reports he saw and was pleased but said he wanted him to get 115 flex PT-OP-G Mobility & Gait Start: 04/07/22 09:54 Freq: Status: Active Protocol: Document 04/14/22 14:31 SAK (Rec: 04/14/22 16:45 SAK [id number]) OP Mobility Evaluation Transfers Sit to Stand minimal use of left LE Stair Climbing Evaluation Comments Stair Climbing Comments deferred today. ASsess next session PT-OP-J Posture/Palpation/Skin Start: 04/07/22 09:54 Freq: Status: Active Protocol: Document 04/14/22 14:31 SAK (Rec: 04/14/22 16:45 SAK [id number]) Skin Assessment Edema Assessment Left Leg Edema Type Pitting Edema Degree 3+ Subjective Edema Description Tightness Comments throughout left knee, lower leg, ankle PT-OP-K Range of Motion Start: 04/07/22 09:54 Freq: Status: Active Protocol: Document 04/16/22 09:50 SP (Rec: 04/16/22 10:37 SP [id number]) Knee Goniometric Range of Motion Knee Left Knee ROM WFL No Patient Position Supine Flexion Active (degrees) 85 Flexion Passive (degrees) 90 Extension Active (degrees) 4 Extension Passive (degrees) 5 Comments supine foot propped up on foam rectangle roller PT-OP-M Strength Start: 04/07/22 09:54 Freq: Status: Active Protocol: Document 04/14/22 14:31 SAK (Rec: 04/14/22 16:45 SAK [id number]) Knee Strength Knee Manual Muscle Testing Left Flexion (S2) 3- Fair- Extension (L3) 3- Fair- PT-OP-Q Treatments Start: 04/07/22 09:54 Freq: Status: Active Protocol: Document 05/13/22 15:22 [facility] (Rec: 05/13/22 16:02 [facility] [id number]) Cardio Equipment Recumbent Elliptical (Biodex) Duration (Minutes) 1 Resistance 2 Bicycle (Upright) Duration (Minutes) 6 Resistance 2 Seat Position 6 Therapeutic Exercises Sitting Exercises LAQ Side left Resistance AROM Reps/Minutes 5 sec x8 Standing Exercises step up Side left Equipment Used 6 in step, 8 in step Reps/Minutes 1. 5 2. 8 sit to stand Standing Exercise Name chair Side bilateral Reps/Minutes 10 Comments no hands heel raises Standing Exercise Name SL Side bilateral Equipment Used rail fo rbalance Reps/Minutes 10 sidestep Side bilateral Equipment Used yellow band Reps/Minutes 20ft TKE Side left Equipment Used L3 Reps/Minutes 15 Manual Therapy Treatment Soft Tissue Mobilization scar Body Location L knee Mobilization Type Rolling,Strumming Intensity/Depth Moderate Body Position Supine post Body Location lat HS, calf Mobilization Type Rolling Intensity/Depth Moderate Body Position Supine PT-OP-R Modalities Start: 04/16/22 10:43 Freq: Status: Active Protocol: Document 05/13/22 15:22 [facility] (Rec: 05/13/22 16:02 [facility] [id number]) Hot Pack/Cold Pack Treatment Cold Pack Location ant/post knee Patient Position Hooklying Treatment Duration (minutes) 10 PT-OP-T Assessment and Plan Start: 04/07/22 09:54 Freq: Status: Active Protocol: Document 05/13/22 15:22 [facility] (Rec: 05/13/22 16:02 [facility] [id number]) Physical Therapy Assessment Goals Three Impairment Strength Short Term Goal (STG) Meet will be independent and consistent with a HEP for his knee. STG Duration 04/29/22 Mcc Goal (LTG) Meet will show improved knee strength by moving from sit to stand without UE support. LTG Duration 06/17/22 Two Impairment Gait Short Term Goal (STG) Meet will ambulate for 6 minutes over smooth surface without assistive device. STG Duration 04/29/22 Drier Helper Goal (LTG) Meet will ascend and descend a flight of stairs with an alternating gait pattern. LTG Duration 06/17/22 One Impairment Range Short Term Goal (STG) Meet will improve his PROM left kneeto 5-100. STG Duration 04/29/22 Drier Helper Goal (LTG) Meet will improve his AROM left knee to 0-120. LTG Duration 06/17/22 Assessment Summary Assessment Pt did well today with exercises and was able to progress exercises further today w/minor inc in pain. he is showing improved ROM w/flex starting at 103 and imrpvoing to 107 after manual Physical Therapy Plan Frequency and Duration Frequency of Treatment 21 visits Duration of Treatment 10 weeks Plan of Care Start Date 04/08/22 Plan of Care End Date 06/17/22 Next Visit Focus/Plan Next Note Type Treatment Note Next Visit Plan cont bike and working on end range ext strength and quad strength and end range flex
--- NOTE | 2022-05-16 08:16 | PT.OTN ---
Current Diagnoses Unilateral primary osteoarthritis, left knee (05/16/22) Physical Therapy Treatment Note PT-OP-A Visit Information Start: 04/07/22 09:54 Freq: Status: Active Protocol: Document 05/16/22 07:29 AMB (Rec: 05/16/22 08:12 AMB [id number]) Out-Patient Physical Therapy Visit Information Visit Information Visit Type Treatment Note Visit Start Time 07:30 Visit Stop Time 08:15 Total Visit Minutes 45 Visit Number 10/09 PT-OP-B Current Condition Start: 04/07/22 09:54 Freq: Status: Active Protocol: Document 04/14/22 14:31 SAK (Rec: 04/14/22 15:15 SAK [id number]) Current Condition History of Current Condition Onset Date 04/09/22 Current Complaints L TKA 04/09/22 History of Current Condition s/p left TKA 04/09/22, discharged home. Reports has been doing exercises a couple times per day, though painful and has a difficult time lifting his leg. Has history of bilateral LE swelling and left LE is swollen worse after surgery. States he has been icing. Using SPC to PT today, states I'm not a walker melony. Personal Factors Other Personal Factors That May Effect hypertension, R knee pain, Therapy/Recovery swelling PT-OP-C Subjective Start: 04/07/22 09:54 Freq: Status: Active Protocol: Document 05/16/22 07:29 AMB (Rec: 05/16/22 08:12 AMB [id number]) OP-PT Subjective Patient Comments Patient Comments Pt reports sore/stiff for last couple days PT-OP-G Mobility & Gait Start: 04/07/22 09:54 Freq: Status: Active Protocol: Document 04/14/22 14:31 SAK (Rec: 04/14/22 16:45 SAK [id number]) OP Mobility Evaluation Transfers Sit to Stand minimal use of left LE Stair Climbing Evaluation Comments Stair Climbing Comments deferred today. ASsess next session PT-OP-J Posture/Palpation/Skin Start: 04/07/22 09:54 Freq: Status: Active Protocol: Document 04/14/22 14:31 SAK (Rec: 04/14/22 16:45 SAK [id number]) Skin Assessment Edema Assessment Left Leg Edema Type Pitting Edema Degree 3+ Subjective Edema Description Tightness Comments throughout left knee, lower leg, ankle PT-OP-K Range of Motion Start: 04/07/22 09:54 Freq: Status: Active Protocol: Document 04/16/22 09:50 SP (Rec: 04/16/22 10:37 SP [id number]) Knee Goniometric Range of Motion Knee Left Knee ROM WFL No Patient Position Supine Flexion Active (degrees) 85 Flexion Passive (degrees) 90 Extension Active (degrees) 4 Extension Passive (degrees) 5 Comments supine foot propped up on foam rectangle roller PT-OP-M Strength Start: 04/07/22 09:54 Freq: Status: Active Protocol: Document 04/14/22 14:31 SAK (Rec: 04/14/22 16:45 SAK [id number]) Knee Strength Knee Manual Muscle Testing Left Flexion (S2) 3- Fair- Extension (L3) 3- Fair- PT-OP-Q Treatments Start: 04/07/22 09:54 Freq: Status: Active Protocol: Document 05/16/22 07:29 AMB (Rec: 05/16/22 08:12 AMB [id number]) Cardio Equipment Bicycle (Upright) Duration (Minutes) 6 Resistance 2 Seat Position 6 Other rocking back and forth first to warm up Therapeutic Exercises Supine Exercises SLR Side left Equipment Used mod PT assist Reps/Minutes 10x Comments cues for core activation, quad set faca, and ankle df prior to lift. Sitting Exercises HS stretch Side left Reps/Minutes 30 sec LAQ Side left Resistance AROM Reps/Minutes 5 sec x8 Standing Exercises heel raises Standing Exercise Name DL Side bilateral Equipment Used rail fo rbalance Reps/Minutes 10 sidestep Side bilateral Equipment Used yellow band Reps/Minutes 20ft Manual Therapy Treatment Soft Tissue Mobilization scar Body Location L knee Mobilization Type Rolling,Strumming Intensity/Depth Moderate Body Position Supine post Body Location lat HS, calf Mobilization Type Rolling Intensity/Depth Moderate Body Position Supine PT-OP-R Modalities Start: 04/16/22 10:43 Freq: Status: Active Protocol: Document 05/13/22 15:22 LR (Rec: 05/13/22 16:02 LR [id number]) Hot Pack/Cold Pack Treatment Cold Pack Location ant/post knee Patient Position Hooklying Treatment Duration (minutes) 10 PT-OP-T Assessment and Plan Start: 04/07/22 09:54 Freq: Status: Active Protocol: Document 05/16/22 07:29 [facility] (Rec: 05/16/22 08:12 [facility] [id number]) Physical Therapy Assessment Goals Three Impairment Strength Short Term Goal (STG) Meet will be independent and consistent with a HEP for his knee. STG Duration 04/29/22 Care Home Goal (LTG) Meet will show improved knee strength by moving from sit to stand without UE support. LTG Duration 06/17/22 Two Impairment Gait Short Term Goal (STG) Meet will ambulate for 6 minutes over smooth surface without assistive device. STG Duration 04/29/22 Care Home Goal (LTG) Meet will ascend and descend a flight of stairs with an alternating gait pattern. LTG Duration 06/17/22 One Impairment Range Short Term Goal (STG) Meet will improve his PROM left kneeto 5-100. STG Duration 04/29/22 Third Officer Goal (LTG) Meet will improve his AROM left knee to 0-120. LTG Duration 06/17/22 Assessment Summary Assessment Pt was sore after last visit, so did back down a little bit, but encouraged to ice back of knee and to continue SLR to engage terminal knee extension . Physical Therapy Plan Next Visit Focus/Plan Next Note Type Treatment Note Next Visit Plan cont bike and working on end range ext strength and quad strength and end range flex
--- NOTE | 2022-05-22 13:46 | PT.OTN ---
Current Diagnoses Unilateral primary osteoarthritis, left knee (05/22/22) Physical Therapy Treatment Note PT-OP-A Visit Information Start: 04/07/22 09:54 Freq: Status: Active Protocol: Document 05/22/22 13:07 AMB (Rec: 05/22/22 13:46 AMB [id number]) Out-Patient Physical Therapy Visit Information Visit Information Visit Type Treatment Note Visit Start Time 13:00 Visit Stop Time 13:45 Total Visit Minutes 45 Visit Number PT-OP-B Current Condition Start: 04/07/22 09:54 Freq: Status: Active Protocol: Document 04/14/22 14:31 SAK (Rec: 04/14/22 15:15 SAK [id number]) Current Condition History of Current Condition Onset Date 04/09/22 Current Complaints L TKA 04/09/22 History of Current Condition s/p left TKA 04/09/22, discharged home. Reports has been doing exercises a couple times per day, though painful and has a difficult time lifting his leg. Has history of bilateral LE swelling and left LE is swollen worse after surgery. States he has been icing. Using SPC to PT today, states I'm not a walker melony. Personal Factors Other Personal Factors That May Effect hypertension, R knee pain, Therapy/Recovery swelling PT-OP-C Subjective Start: 04/07/22 09:54 Freq: Status: Active Protocol: Document 05/22/22 13:07 AMB (Rec: 05/22/22 13:46 AMB [id number]) OP-PT Subjective Patient Comments Patient Comments Pt is continuing to be stiff. PT-OP-G Mobility & Gait Start: 04/07/22 09:54 Freq: Status: Active Protocol: Document 04/14/22 14:31 SAK (Rec: 04/14/22 16:45 SAK [id number]) OP Mobility Evaluation Transfers Sit to Stand minimal use of left LE Stair Climbing Evaluation Comments Stair Climbing Comments deferred today. ASsess next session PT-OP-J Posture/Palpation/Skin Start: 04/07/22 09:54 Freq: Status: Active Protocol: Document 04/14/22 14:31 SAK (Rec: 04/14/22 16:45 SAK [id number]) Skin Assessment Edema Assessment Left Leg Edema Type Pitting Edema Degree 3+ Subjective Edema Description Tightness Comments throughout left knee, lower leg, ankle PT-OP-K Range of Motion Start: 04/07/22 09:54 Freq: Status: Active Protocol: Document 04/16/22 09:50 SP (Rec: 04/16/22 10:37 SP [id number]) Knee Goniometric Range of Motion Knee Left Knee ROM WFL No Patient Position Supine Flexion Active (degrees) 85 Flexion Passive (degrees) 90 Extension Active (degrees) 4 Extension Passive (degrees) 5 Comments supine foot propped up on foam rectangle roller PT-OP-M Strength Start: 04/07/22 09:54 Freq: Status: Active Protocol: Document 04/14/22 14:31 SAK (Rec: 04/14/22 16:45 SAK [id number]) Knee Strength Knee Manual Muscle Testing Left Flexion (S2) 3- Fair- Extension (L3) 3- Fair- PT-OP-Q Treatments Start: 04/07/22 09:54 Freq: Status: Active Protocol: Document 05/22/22 13:07 AMB (Rec: 05/22/22 13:46 AMB [id number]) Cardio Equipment Bicycle (Upright) Duration (Minutes) 6 Resistance 2 Seat Position 6 Other rocking back and forth first to warm up Therapeutic Exercises Supine Exercises quad stretch Reps/Minutes 30x2 heel slide Supine Exercise Name Knee flex with TBAll Side left Equipment Used Small Red TBall Reps/Minutes [id number] Comments AROM 2-90 today SLR Side left Equipment Used mod PT assist Reps/Minutes 10x Comments cues for core activation, quad set faca, and ankle df prior to lift. quad sets Supine Exercise Name QS Side left Reps/Minutes 10SH x 10 Manual Therapy Treatment Soft Tissue Mobilization scar Body Location L knee Mobilization Type Rolling,Strumming Intensity/Depth Moderate Body Position Supine post Body Location lat HS, calf Mobilization Type Rolling Intensity/Depth Moderate Body Position Supine PT-OP-R Modalities Start: 04/16/22 10:43 Freq: Status: Active Protocol: Document 05/13/22 15:22 LR (Rec: 05/13/22 16:02 LR [id number]) Hot Pack/Cold Pack Treatment Cold Pack Location ant/post knee Patient Position Hooklying Treatment Duration (minutes) 10 PT-OP-T Assessment and Plan Start: 04/07/22 09:54 Freq: Status: Active Protocol: Document 05/22/22 13:07 AMB (Rec: 05/22/22 13:46 [facility] [id number]) Physical Therapy Assessment Goals Three Impairment Strength Short Term Goal (STG) Meet will be independent and consistent with a HEP for his knee. STG Duration 04/29/22 Batch Heat Treat Operator Goal (LTG) Meet will show improved knee strength by moving from sit to stand without UE support. LTG Duration 06/17/22 Two Impairment Gait Short Term Goal (STG) Meet will ambulate for 6 minutes over smooth surface without assistive device. STG Duration 04/29/22 Mcfp Goal (LTG) Meet will ascend and descend a flight of stairs with an alternating gait pattern. LTG Duration 06/17/22 One Impairment Range Short Term Goal (STG) Meet will improve his PROM left kneeto 5-100. STG Duration 04/29/22 Mcfp Goal (LTG) Meet will improve his AROM left knee to 0-120. LTG Duration 06/17/22 Assessment Summary Assessment Pt was stiff and swollen today . Continued to encourage stretching and SLR For quad control. UP to 97 degrees, but having a more difficult day today. Physical Therapy Plan Next Visit Focus/Plan Next Note Type Treatment Note Next Visit Plan cont bike and working on end range ext strength and quad strength and end range flex
--- NOTE | 2022-05-27 11:52 | PT.OTN ---
Current Diagnoses Unilateral primary osteoarthritis, left knee (05/27/22) Physical Therapy Treatment Note PT-OP-A Visit Information Start: 04/07/22 09:54 Freq: Status: Active Protocol: Document 05/27/22 09:49 AMB (Rec: 05/27/22 10:32 AMB [id number]) Out-Patient Physical Therapy Visit Information Visit Information Visit Type Treatment Note Visit Start Time 13:00 Visit Stop Time 13:45 Total Visit Minutes 45 Visit Number 1415 PT-OP-B Current Condition Start: 04/07/22 09:54 Freq: Status: Active Protocol: Document 04/14/22 14:31 SAK (Rec: 04/14/22 15:15 SAK [id number]) Current Condition History of Current Condition Onset Date 04/09/22 Current Complaints L TKA 04/09/22 History of Current Condition s/p left TKA 04/09/22, discharged home. Reports has been doing exercises a couple times per day, though painful and has a difficult time lifting his leg. Has history of bilateral LE swelling and left LE is swollen worse after surgery. States he has been icing. Using SPC to PT today, states I'm not a walker melony. Personal Factors Other Personal Factors That May Effect hypertension, R knee pain, Therapy/Recovery swelling PT-OP-C Subjective Start: 04/07/22 09:54 Freq: Status: Active Protocol: Document 05/27/22 09:49 AMB (Rec: 05/27/22 10:32 AMB [id number]) OP-PT Subjective Patient Comments Patient Comments Hasn't taken pain meds in 3 days. Ellipitcal in the morning is helping to loosen it up. PT-OP-G Mobility & Gait Start: 04/07/22 09:54 Freq: Status: Active Protocol: Document 04/14/22 14:31 SAK (Rec: 04/14/22 16:45 SAK [id number]) OP Mobility Evaluation Transfers Sit to Stand minimal use of left LE Stair Climbing Evaluation Comments Stair Climbing Comments deferred today. ASsess next session PT-OP-J Posture/Palpation/Skin Start: 04/07/22 09:54 Freq: Status: Active Protocol: Document 04/14/22 14:31 SAK (Rec: 04/14/22 16:45 SAK [id number]) Skin Assessment Edema Assessment Left Leg Edema Type Pitting Edema Degree 3+ Subjective Edema Description Tightness Comments throughout left knee, lower leg, ankle PT-OP-K Range of Motion Start: 04/07/22 09:54 Freq: Status: Active Protocol: Document 04/16/22 09:50 SP (Rec: 04/16/22 10:37 SP [id number]) Knee Goniometric Range of Motion Knee Left Knee ROM WFL No Patient Position Supine Flexion Active (degrees) 85 Flexion Passive (degrees) 90 Extension Active (degrees) 4 Extension Passive (degrees) 5 Comments supine foot propped up on foam rectangle roller PT-OP-M Strength Start: 04/07/22 09:54 Freq: Status: Active Protocol: Document 04/14/22 14:31 SAK (Rec: 04/14/22 16:45 SAK [id number]) Knee Strength Knee Manual Muscle Testing Left Flexion (S2) 3- Fair- Extension (L3) 3- Fair- PT-OP-Q Treatments Start: 04/07/22 09:54 Freq: Status: Active Protocol: Document 05/27/22 09:49 AMB (Rec: 05/27/22 10:32 AMB [id number]) Cardio Equipment Bicycle (Upright) Duration (Minutes) 6 Resistance 2 Seat Position [address] [place] at beginning Therapeutic Exercises Supine Exercises passive knee ext Side left Reps/Minutes 30 SLR Side left Reps/Minutes 10x2 Comments cues for core activation, quad set faca, and ankle df prior to lift. Sitting Exercises HS stretch Side left Reps/Minutes 30 sec Standing Exercises step up Side left Equipment Used 6 in step, 8 in step Reps/Minutes 1. 5 2. 8 heel raises Standing Exercise Name DL Side bilateral Equipment Used rail fo rbalance Reps/Minutes 10 TKE Side left Equipment Used L3 Reps/Minutes 15 Manual Therapy Treatment Soft Tissue Mobilization scar Body Location L knee Mobilization Type Rolling,Strumming Intensity/Depth Moderate Body Position Supine post Body Location lat HS, calf Mobilization Type Rolling Intensity/Depth Moderate Body Position Supine PT-OP-R Modalities Start: 04/16/22 10:43 Freq: Status: Active Protocol: Document 05/13/22 15:22 LR (Rec: 05/13/22 16:02 [facility] [id number]) Hot Pack/Cold Pack Treatment Cold Pack Location ant/post knee Patient Position Hooklying Treatment Duration (minutes) 10 PT-OP-T Assessment and Plan Start: 04/07/22 09:54 Freq: Status: Active Protocol: Document 05/27/22 09:49 AMB (Rec: 05/27/22 10:32 AMB [id number]) Physical Therapy Assessment Goals Three Impairment Strength Short Term Goal (STG) Meet will be independent and consistent with a HEP for his knee. STG Duration 04/29/22 Longterm Goal (LTG) Meet will show improved knee strength by moving from sit to stand without UE support. LTG Duration 06/17/22 Two Impairment Gait Short Term Goal (STG) Meet will ambulate for 6 minutes over smooth surface without assistive device. STG Duration 04/29/22 Air Crew Supervisor Goal (LTG) Meet will ascend and descend a flight of stairs with an alternating gait pattern. LTG Duration 06/17/22 One Impairment Range Short Term Goal (STG) Meet will improve his PROM left kneeto 5-100. STG Duration 04/29/22 Air Crew Supervisor Goal (LTG) Meet will improve his AROM left knee to 0-120. LTG Duration 06/17/22 Assessment Summary Assessment Better flexion today, continued quad lag, continue to benefit from knee extension stretching. Physical Therapy Plan Next Visit Focus/Plan Next Note Type Treatment Note Next Visit Plan cont bike and working on end range ext strength and quad strength and end range flex
--- NOTE | 2022-05-29 15:56 | PT.OTN ---
Current Diagnoses Unilateral primary osteoarthritis, left knee (05/29/22) Physical Therapy Treatment Note PT-OP-A Visit Information Start: 04/07/22 09:54 Freq: Status: Active Protocol: Document 05/29/22 13:41 AMB (Rec: 05/29/22 13:45 AMB [id number]) Out-Patient Physical Therapy Visit Information Visit Information Visit Type Treatment Note Visit Start Time 09:45 Visit Stop Time 10:30 Total Visit Minutes 45 Visit Number 15 PT-OP-B Current Condition Start: 04/07/22 09:54 Freq: Status: Active Protocol: Document 04/14/22 14:31 SAK (Rec: 04/14/22 15:15 SAK [id number]) Current Condition History of Current Condition Onset Date 04/09/22 Current Complaints L TKA 04/09/22 History of Current Condition s/p left TKA 04/09/22, discharged home. Reports has been doing exercises a couple times per day, though painful and has a difficult time lifting his leg. Has history of bilateral LE swelling and left LE is swollen worse after surgery. States he has been icing. Using SPC to PT today, states I'm not a walker melony. Personal Factors Other Personal Factors That May Effect hypertension, R knee pain, Therapy/Recovery swelling PT-OP-C Subjective Start: 04/07/22 09:54 Freq: Status: Active Protocol: Document 05/29/22 13:41 AMB (Rec: 05/29/22 13:45 AMB [id number]) OP-PT Subjective Patient Comments Patient Comments Antoni of [facility] today, MD office has asked for more but haven't heard back yet. PT-OP-G Mobility & Gait Start: 04/07/22 09:54 Freq: Status: Active Protocol: Document 04/14/22 14:31 SAK (Rec: 04/14/22 16:45 SAK [id number]) OP Mobility Evaluation Transfers Sit to Stand minimal use of left LE Stair Climbing Evaluation Comments Stair Climbing Comments deferred today. ASsess next session PT-OP-J Posture/Palpation/Skin Start: 04/07/22 09:54 Freq: Status: Active Protocol: Document 04/14/22 14:31 SAK (Rec: 04/14/22 16:45 SAK [id number]) Skin Assessment Edema Assessment Left Leg Edema Type Pitting Edema Degree 3+ Subjective Edema Description Tightness Comments throughout left knee, lower leg, ankle PT-OP-K Range of Motion Start: 04/07/22 09:54 Freq: Status: Active Protocol: Document 04/16/22 09:50 SP (Rec: 04/16/22 10:37 SP [id number]) Knee Goniometric Range of Motion Knee Left Knee ROM WFL No Patient Position Supine Flexion Active (degrees) 85 Flexion Passive (degrees) 90 Extension Active (degrees) 4 Extension Passive (degrees) 5 Comments supine foot propped up on foam rectangle roller PT-OP-M Strength Start: 04/07/22 09:54 Freq: Status: Active Protocol: Document 04/14/22 14:31 SAK (Rec: 04/14/22 16:45 SAK [id number]) Knee Strength Knee Manual Muscle Testing Left Flexion (S2) 3- Fair- Extension (L3) 3- Fair- PT-OP-Q Treatments Start: 04/07/22 09:54 Freq: Status: Active Protocol: Document 05/29/22 09:00 AMB (Rec: 05/29/22 15:55 AMB [id number]) Cardio Equipment Bicycle (Upright) Duration (Minutes) 6 Resistance 2 Seat Position 6 Other full hughes at beginning Therapeutic Exercises Supine Exercises SAQ Side bilateral Reps/Minutes 10x Comments 5# SLR Side left Reps/Minutes 10x2 Comments cues for core activation, quad set faca, and ankle df prior to lift. Sitting Exercises HS stretch Side left Reps/Minutes 30 sec Standing Exercises heel raises Standing Exercise Name DL Side bilateral Equipment Used rail fo rbalance Reps/Minutes 10 TKE Side left Equipment Used L3 Reps/Minutes 15 Other Exercises quadruped knee flexion stretch Other Exercise Name gentle Reps/Minutes 30x2 Manual Therapy Treatment Soft Tissue Mobilization scar Body Location L knee Mobilization Type Rolling,Strumming Intensity/Depth Moderate Body Position Supine PT-OP-R Modalities Start: 04/16/22 10:43 Freq: Status: Active Protocol: Document 05/29/22 13:32 AMB (Rec: 05/29/22 13:32 AMB [id number]) Hot Pack/Cold Pack Treatment Cold Pack Location ant/post knee Patient Position Hooklying Treatment Duration (minutes) 10 PT-OP-T Assessment and Plan Start: 04/07/22 09:54 Freq: Status: Active Protocol: Document 05/29/22 13:41 AMB (Rec: 05/29/22 13:45 AMB [id number]) Physical Therapy Assessment Goals Three Impairment Strength Short Term Goal (STG) Meet will be independent and consistent with a HEP for his knee. STG Duration MET Shelter Goal (LTG) Meet will show improved knee strength by moving from sit to stand without UE support. LTG Duration MET Two Impairment Gait Short Term Goal (STG) Meet will ambulate for 6 minutes over smooth surface without assistive device. STG Duration MET Shelter Goal (LTG) Meet will ascend and descend a flight of stairs with an alternating gait pattern. LTG Duration MET One Impairment Range Short Term Goal (STG) Meet will improve his PROM left kneeto 5-100. STG Duration MET Shelter Goal (LTG) Meet will improve his AROM left knee to 0-120. LTG Duration 06/17/22 Assessment Summary Assessment Meet continues to have LE edema that limits ROM. Quad lag with SLR is better but still present. Progressed HEP today with knee flexion stretch, SLR, and wall squat. Pt to follow up when we have [facility]. Physical Therapy Plan Next Visit Focus/Plan Next Visit Plan Reassess Range, strength, gait
--- NOTE | 2022-07-31 13:30 | PT.OPDS ---
Current Diagnoses Unilateral primary osteoarthritis, left knee (05/29/22) Visit Care Team Role Provider Type Shannon Dupree MD Family Provider Non-Staff Primary Care Provider Specialty: Family Practice Address: [address] [facility] [address], [place], [address] Email: Reinier Pearson MD Attending Provider Physician Referring Provider Specialty: Orthopedics Orthopedic Surgery Address: [address] [place] [address], [place], [address] Email: [email or web address] Visit Number Visit Number 15 Discharge Summary PT-OP-B Current Condition Start: 04/07/22 09:54 Freq: Status: Active Protocol: Document 04/14/22 14:31 SAK (Rec: 04/14/22 15:15 SAK [id number]) Current Condition History of Current Condition Onset Date 04/09/22 Current Complaints L TKA 04/09/22 History of Current Condition s/p left TKA 04/09/22, discharged home. Reports has been doing exercises a couple times per day, though painful and has a difficult time lifting his leg. Has history of bilateral LE swelling and left LE is swollen worse after surgery. States he has been icing. Using [facility] to PT today, states I'm not a walker melony. Personal Factors Other Personal Factors That May Effect hypertension, R knee pain, Therapy/Recovery swelling PT-OP-C Subjective Start: 04/07/22 09:54 Freq: Status: Active Protocol: Document 05/29/22 13:41 AMB (Rec: 05/29/22 13:45 AMB [id number]) OP-PT Subjective Patient Comments Patient Comments Story of [facility] today, MD office has asked for more but haven't heard back yet. PT-OP-G Mobility & Gait Start: 04/07/22 09:54 Freq: Status: Active Protocol: Document 04/14/22 14:31 SAK (Rec: 04/14/22 16:45 SAK [id number]) OP Mobility Evaluation Transfers Sit to Stand minimal use of left LE Stair Climbing Evaluation Comments Stair Climbing Comments deferred today. ASsess next session PT-OP-J Posture/Palpation/Skin Start: 04/07/22 09:54 Freq: Status: Active Protocol: Document 04/14/22 14:31 SAK (Rec: 04/14/22 16:45 SAK [id number]) Skin Assessment Edema Assessment Left Leg Edema Type Pitting Edema Degree 3+ Subjective Edema Description Tightness Comments throughout left knee, lower leg, ankle PT-OP-K Range of Motion Start: 04/07/22 09:54 Freq: Status: Active Protocol: Document 04/16/22 09:50 SP (Rec: 04/16/22 10:37 SP [id number]) Knee Goniometric Range of Motion Knee Left Knee ROM WFL No Patient Position Supine Flexion Active (degrees) 85 Flexion Passive (degrees) 90 Extension Active (degrees) 4 Extension Passive (degrees) 5 Comments supine foot propped up on foam rectangle roller PT-OP-M Strength Start: 04/07/22 09:54 Freq: Status: Active Protocol: Document 04/14/22 14:31 SAK (Rec: 04/14/22 16:45 SAK [id number]) Knee Strength Knee Manual Muscle Testing Left Flexion (S2) 3- Fair- Extension (L3) 3- Fair- PT-OP-T Assessment and Plan Start: 04/07/22 09:54 Freq: Status: Active Protocol: Document 07/31/22 13:28 AMB (Rec: 07/31/22 13:30 AMB [id number]) Physical Therapy Assessment Goals Three Impairment Strength Short Term Goal (STG) Meet will be independent and consistent with a HEP for his knee. STG Duration [employer] Goal (LTG) Meet will show improved knee strength by moving from sit to stand without UE support. LTG Duration MET Two Impairment Gait Short Term Goal (STG) Meet will ambulate for 6 minutes over smooth surface without assistive device. STG Duration [employer] Goal (LTG) Meet will ascend and descend a flight of stairs with an alternating gait pattern. LTG Duration MET One Impairment Range Short Term Goal (STG) Meet will improve his PROM left kneeto 5-100. STG Duration [employer] Goal (LTG) Meet will improve his AROM left knee to 0-120. LTG Duration 06/17/22 Assessment Summary Assessment We have not seen the patient in 2 months, we are still waiting for more [place] authorization. Pt is doing his HEP and would need a new referral to continue with PT if needed inthe future. He had met the majority of his goals , with the exception of his fci ROM goal. Physical Therapy Plan Discharge Physical Therapy Discharge Reasons No Longer Attending PT
== END 2022-08-01 14:51 | disposition home or self-care (01) ==
LOC: PHYS 09:45
PROVIDERS: Family Provider Family Medicine; PCP Family Medicine; Referring Provider Orthopaedic Surgery; Visit Provider Orthopaedic Surgery
DX: M17.12 Unilateral primary osteoarthritis, left knee (principal)
CPT/HCPCS: 97010; 97014; 97032; 97110; 97140; 97161; 97164; 97535; G0283

== ENCOUNTER → 2022-09-03 16:07 | Outpatient (CLI) | payer OTHER, SELFPAY ==
[2022-04-09 15:01] VITALS: BMI 32.5
[2022-09-03 16:47] LABS: Add Manual Diff / Slide Review NO; Basophils Absolute Auto 100 /uL (0-100); Basophils Percent Auto 0.9 % (0-2); Eosinophils Absolute Auto 100 /uL (0-450); Eosinophils Percent Auto 1.1 % (2-4); Hematocrit 41.5 % (41-53); Hemoglobin 14.3 g/dL (13.5-17.5); Lymphocytes Absolute Auto 1400 /uL (1100-4500); Mean Corpuscular HGB Conc 34.4 % (30-36); Mean Corpuscular Hemoglobin 30.5 PG (26-34); Mean Corpuscular Volume 88.6 fL (80-100); Monocytes Absolute Auto 500 /uL (0-900); Monocytes Percent Auto 7.8 % (3-14); Neutrophils Absolute Auto 4700 /uL (1500-7000); Neutrophils Percent Auto 69.2 % (50-75); Platelet Count 156 X10^3/uL (150-400); Red Blood Cell Count 4.69 X10^6/uL (4.5-5.9); Red Cell Distribution Width 13.6 % (11.6-14.8); White Blood Cell Count 6.9 X10^3/uL (4.5-11.0)
[2022-09-03 17:03] LABS: BUN Creatinine Ratio 14.3 (6-22); Blood Urea Nitrogen 13 mg/dL (9-20); Calcium 9.3 mg/dL (8.4-10.2); Carbon Dioxide 27 mmol/L (22-32); Chloride 103 mmol/L (98-107); Estimated Glomerular Filt Rate > 60 mL/min (>60); Glucose 93 mg/dL (80-110); HEMOLYSIS < 15 (0-50); Potassium 3.9 mmol/L (3.4-5.1); Sodium 139 mmol/L (137-145)
== END ==
PROVIDERS: Family Provider Family Medicine; PCP Family Medicine; Referring Provider Orthopaedic Surgery; Visit Provider Orthopaedic Surgery
DX: Z01.812 Encounter for preprocedural laboratory examination (principal); M25.561 Pain in right knee
CPT/HCPCS: 36415; 80048; 85025